=== PATIENT | male | born 1970 | race Caucasian/White ===

== ENCOUNTER 2019-10-30 04:53 | Inpatient (IN) ==
--- NOTE | 2019-10-28 10:00 | XRay Report ---
CLINICAL INFORMATION:Preoperative evaluation TECHNIQUE: PA and lateral upright chest x-ray COMPARISON: Previous chest x-ray dated 01/09/2006 FINDINGS:No focal pulmonary parenchymal infiltrate or mass. Heart size and vascularity are normal. Lindsay and mediastinum are negative. There is no pleural fluid IMPRESSION: No acute abnormality Interpreted and Authenticated by: Otilio Beyer 10/28/19
[2019-10-28 13:12] LABS: Basophils # (Auto) 0.09 K/mcL (0.00-0.30); Basophils % (Auto) 0.9 % (0.0-2.0); Eosinophils # (Auto) 0.41 K/mcL (0.00-0.70); Eosinophils % (Auto) 4.1 % (0.0-7.0); Granulocytes % (Auto) 52.8 % (38.0-78.0); Hematocrit 49.5 % (40.1-51.0); Hemoglobin 17.3 g/dL (13.7-17.5); Lymphocytes # (Auto) 3.49 K/mcL (1.50-4.80); Lymphocytes % (Auto) 34.8 % (15.5-49.0); Mean Cell Volume 89.4 fL (80.0-100.0); Mean Corpuscular HGB Conc 34.9 g/dL (31.0-36.0); Mean Platelet Volume 9.8 fL (7.4-10.4); Monocytes # (Auto) 0.74 K/mcL (0.10-0.90); Monocytes % (Auto) 7.4 % (1.0-12.0); Platelet Count 368 K/mcL (140-440); RBC 5.54 M/mcL (4.63-6.08); Red Cell Distribution Width 12.6 % (11.5-14.5)
[2019-10-28 13:24] LABS: ALT/SGPT 30 U/l (0-40); AST/SGOT 22 U/l (0-37); Albumin 4.7 gm/dL (3.2-5.2); Albumin/Globulin Ratio 1.6 (1.0-2.3); Alkaline Phosphatase 64 U/L (39-117); Bilirubin,Total 0.3 mg/dL (0.0-1.0); Blood Urea Nitrogen 12 mg/dl (6-20); Carbon Dioxide 24 mmol/L (22-30); Chloride 101 mmol/L (96-108); Glomerular Filtration Rate 87; Glucose 86 mg/dL (70-105)
[2019-10-30] MEDS ORDERED: 0.9 % SODIUM CHLORIDE 250 ML IV SCH (05:00)
[2019-10-30] MEDS ORDERED: IPRATROPIUM/ALBUTEROL 3 ML AMPUL.NEB NEB PRN ×3 (05:00→12:12)
[2019-10-30] MEDS ORDERED: SCOPOLAMINE 1 PATCH PATCH TOPICAL PRN (05:00)
[2019-10-30] MEDS ORDERED: metroNIDAZOLE 500 MG/100 ML BAG IV SCH (06:00)
[2019-10-30] MEDS ORDERED: LEVOFLOXACIN 750 MG/150 ML BAG IV SCH (06:00)
[2019-10-30] MEDS ORDERED: IPRATROPIUM/ALBUTEROL 3 ML AMPUL.NEB NEB ONE (08:04)
[2019-10-30] MEDS ORDERED: ACETAMINOPHEN 1,000 MG/100 ML BOTTLE IV ONE (08:19)
[2019-10-30] MEDS ORDERED: PROPOFOL 200 MG/20 ML VIAL IV ONE (09:17)
[2019-10-30] MEDS ORDERED: FAMOTIDINE/PF 20 MG/2 ML VIAL IV ONE (09:17)
[2019-10-30] MEDS ORDERED: KETAMINE 100 MG/ML ML IV ONE ×2 (09:17)
[2019-10-30] MEDS ORDERED: MAGNESIUM SULFATE 2 GM/50 ML BAG IV ONE ×2 (09:17→09:30)
[2019-10-30] MEDS ORDERED: SUGAMMADEX SODIUM 200 MG/2 ML VIAL IV ONE (09:17)
[2019-10-30] MEDS ORDERED: DEXAMETHASONE 10 MG/ML VIAL IV ONE (09:17)
[2019-10-30] MEDS ORDERED: FUROSEMIDE 20 MG/2 ML VIAL IV ONE (09:17)
[2019-10-30] MEDS ORDERED: ONDANSETRON 4 MG/2 ML VIAL IV ONE (09:17)
[2019-10-30] MEDS ORDERED: ROCURONIUM 10 MG/ML ML IV ONE (09:17)
[2019-10-30] MEDS ORDERED: PHENYLEPHRINE 10 MG/ML VIAL IV ONE (09:17)
[2019-10-30] MEDS ORDERED: fentaNYL 250 MCG/5 ML VIAL IV ONE (09:17)
[2019-10-30] MEDS ORDERED: SUCCINYLCHOLINE 20 MG/ML ML IV ONE (09:17)
[2019-10-30] MEDS ORDERED: diphenhydrAMINE 50 MG/ML VIAL IV ONE (09:17)
[2019-10-30] MEDS ORDERED: LIDOCAINE HCL/PF 100 MG/5 ML SYRINGE IV ONE (09:17)
[2019-10-30] MEDS ORDERED: ROPIVACAINE HCL/PF 30 ML VIAL IJ ONE (09:17)
[2019-10-30] MEDS ORDERED: methylPREDNISolone ACETATE 80 MG/ML VIAL INTRAARTIC ONE (09:17)
[2019-10-30] MEDS ORDERED: ALBUMIN HUMAN 25 GM/100 ML BAG IV ONE (10:19)
[2019-10-30] MEDS ORDERED: LABETALOL 5 MG/ML ML IV PRN (11:33)
[2019-10-30] MEDS ORDERED: FLUMAZENIL 0.1 MG/ML ML IV PRN (11:33)
[2019-10-30] MEDS ORDERED: LACTATED RINGERS 250 ML IV PRN (11:33)
[2019-10-30] MEDS ORDERED: PROMETHAZINE 25 MG/ML VIAL IV PRN (11:33)
[2019-10-30] MEDS ORDERED: METOPROLOL TARTRATE 5 MG/5 ML VIAL IV PRN (11:33)
[2019-10-30] MEDS ORDERED: NALOXONE HCL 0.4 MG/ML VIAL IV PRN ×2 (11:33→12:12)
[2019-10-30] MEDS ORDERED: KETOROLAC 30 MG/ML VIAL IV PRN (11:33)
[2019-10-30] MEDS ORDERED: METHOCARBAMOL 1,000 MG/10 ML VIAL IV PRN ×2 (11:33→12:12)
--- NOTE | 2019-10-30 11:36 | Brief Operative Note ---
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
[2019-10-30] MEDS ORDERED: LACTATED RINGERS 1,000 ML IV SCH ×2 (11:45→12:15)
[2019-10-30] MEDS ORDERED: HYDROmorphone 2 MG/ML VIAL IV PRN ×2 (11:46→12:12)
[2019-10-30] MEDS ORDERED: diphenhydrAMINE 50 MG/ML VIAL IV PRN (12:12)
[2019-10-30] MEDS ORDERED: PROMETHAZINE 25 MG/ML VIAL IM PRN (12:12)
[2019-10-30] MEDS ORDERED: ATROPINE SULFATE 0.4 MG/ML VIAL IV PRN (12:12)
[2019-10-30] MEDS ORDERED: ONDANSETRON 4 MG/2 ML VIAL IV PRN (12:12)
[2019-10-30] MEDS ORDERED: fentaNYL 100 MCG/2 ML VIAL IV PRN (12:12)
[2019-10-30] MEDS ORDERED: ePHEDrine 50 MG/ML AMPUL IV PRN (12:12)
[2019-10-30] MEDS: fentaNYL 100 MCG/2 ML VIAL IV PRN ×3 (12:15→12:41)
[2019-10-30] MEDS: 0.9 % SODIUM CHLORIDE 1,000 ML IV SCH ×2 (13:15→21:05)
[2019-10-30] MEDS: HYDROmorphone 2 MG/ML VIAL IV PRN ×4 (13:27→22:09)
[2019-10-30] MEDS: METOCLOPRAMIDE 10 MG/2 ML VIAL IV SCH ×2 (13:27→17:29)
[2019-10-30] MEDS: 0.9 % SODIUM CHLORIDE 10 ML SYRINGE IV SCH ×2 (13:28→20:11)
[2019-10-30] MEDS: ACETAMINOPHEN 1,000 MG/100 ML BOTTLE IV SCH ×2 (14:30→21:04)
[2019-10-30] MEDS: ONDANSETRON 4 MG/2 ML VIAL IV PRN (14:30)
[2019-10-30] MEDS ORDERED: QUEtiapine 25 MG TABLET PO SCH (17:00)
[2019-10-30] MEDS: PROMETHAZINE 25 MG/ML VIAL IV PRN (17:29)
[2019-10-30] MEDS ORDERED: TEMAZEPAM 15 MG CAPSULE PO SCH (21:00)
[2019-10-30] MEDS: LORazepam 2 MG/ML VIAL IV PRN (21:05)
[2019-10-31] MEDS: HYDROmorphone 2 MG/ML VIAL IV PRN ×10 (00:37→21:41)
[2019-10-31] MEDS: METOCLOPRAMIDE 10 MG/2 ML VIAL IV SCH ×5 (00:47→23:32)
[2019-10-31] MEDS: ACETAMINOPHEN 1,000 MG/100 ML BOTTLE IV SCH ×3 (00:48→12:30)
[2019-10-31] MEDS: 0.9 % SODIUM CHLORIDE 1,000 ML IV SCH ×4 (03:38→19:28)
[2019-10-31] MEDS: methylPREDNISolone SOD SUCC 125 MG/2 ML VIAL IV SCH ×2 (04:38→15:24)
[2019-10-31] MEDS: 0.9 % SODIUM CHLORIDE 10 ML SYRINGE IV SCH ×4 (05:42→21:42)
[2019-10-31] MEDS: PROMETHAZINE 25 MG/ML VIAL IV PRN (08:24)
[2019-10-31] MEDS ORDERED: LURASIDONE HCL 20 MG PO SCH (09:00)
[2019-10-31] MEDS ORDERED: lamoTRIgine 100 MG TABLET PO SCH (09:00)
[2019-10-31] MEDS ORDERED: LURASIDONE HCL 80 MG PO SCH (09:00)
[2019-10-31] MEDS: LEVOFLOXACIN 500 MG/100 ML BAG IV SCH (09:05)
[2019-10-31] MEDS: ONDANSETRON 4 MG/2 ML VIAL IV PRN (12:31)
--- NOTE | 2019-10-31 12:50 | General Surgery Progress Note ---
Subjective Patient reports: feels better, still having pain, pain is less, no flatus, no bowel movement, afebrile Narrative: Note initiated : 10/31/19 at 12:47 pm Service Date, if different from initiated Date: [] Patient: Yevgeniy Fernandez 49 y/o M admitted on 10/30/19 for Right Colectomy. Chief Complaint: [Patient is stable. He is complaining of headache. His abdominal pain is controlled. He denies nausea.] Objective Temp Pulse Resp BP Pulse Ox 99.6 F H 97 H 17 146/95 93 10/31/19 08:00 10/31/19 08:00 10/31/19 08:00 10/31/19 08:00 10/31/19 08:00 - Additional Data Intake & Output - Last 24 hours: Intake & Output 10/29/19 10/30/19 10/31/19 11/01/19 05:59 05:59 05:59 05:59 Intake Total 4593 1200 Output Total 4850 2000 Balance -257 -800 Weight 183 lb 174 lb 1.6 oz 174 lb 14.4 oz 174 lb 14.4 oz - General physical appearance well developed, well nourished, no distress - Eyes PERRL, normal ocular movement - ENT normal pinna, normal nares, normal mucosa, no hearing loss, no congestion - Neck no masses, no bruits, trachea midline, no lymphadenopathy, no venous distension - Respiratory normal expansion, normal respiratory effort, clear to auscultation - Cardiovascular Cardiovascular exam: Present: normal rate and rhythm, RRR, +S1, +S2. 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 Change of dressing to abdominal incision Current Visit: No - Time Spent With Patient Total time spent is greater than 50% in coordination of care (as documented) at patient's floor/unit and/or counseling patient:
[2019-10-31] MEDS: KETOROLAC 30 MG/ML VIAL IV PRN ×2 (13:13→19:28)
[2019-10-31 13:56] LABS: Basophils # (Auto) 0.02 K/mcL (0.00-0.30); Basophils % (Auto) 0.1 % (0.0-2.0); Eosinophils # (Auto) 0.32 K/mcL (0.00-0.70); Granulocytes % (Auto) 83.7 % (38.0-78.0); Hematocrit 39.9 % (40.1-51.0); Hemoglobin 13.9 g/dL (13.7-17.5); Lymphocytes # (Auto) 0.95 K/mcL (1.50-4.80); Lymphocytes % (Auto) 6.1 % (15.5-49.0); Mean Cell Volume 89.3 fL (80.0-100.0); Mean Corpuscular HGB Conc 34.8 g/dL (31.0-36.0); Mean Platelet Volume 9.7 fL (7.4-10.4); Monocytes # (Auto) 1.27 K/mcL (0.10-0.90); Monocytes % (Auto) 8.1 % (1.0-12.0); Platelet Count 351 K/mcL (140-440); RBC 4.47 M/mcL (4.63-6.08); Red Cell Distribution Width 12.6 % (11.5-14.5); WBC 15.7 K/mcL (4.50-11.00)
[2019-10-31] MEDS: LORazepam 2 MG/ML VIAL IV PRN ×2 (17:14→23:42)
[2019-11-01] MEDS: HYDROmorphone 2 MG/ML VIAL IV PRN ×11 (01:02→23:36)
[2019-11-01] MEDS: 0.9 % SODIUM CHLORIDE 1,000 ML IV SCH ×6 (02:21→17:27)
[2019-11-01] MEDS: LORazepam 2 MG/ML VIAL IV PRN ×2 (05:47→21:37)
[2019-11-01] MEDS: 0.9 % SODIUM CHLORIDE 10 ML SYRINGE IV SCH ×3 (06:01→21:38)
[2019-11-01] MEDS: METOCLOPRAMIDE 10 MG/2 ML VIAL IV SCH ×3 (06:01→17:27)
[2019-11-01 07:06] LABS: ALT/SGPT 19 U/l (0-40); AST/SGOT 19 U/l (0-37); Albumin 4.3 gm/dL (3.2-5.2); Albumin/Globulin Ratio 1.2 (1.0-2.3); Alkaline Phosphatase 55 U/L (39-117); Bilirubin,Direct < 0.2 mg/dL (0.0-0.3); Bilirubin,Total 0.6 mg/dL (0.0-1.0); Blood Urea Nitrogen 10 mg/dl (6-20); Calcium 9.9 mg/dl (8.6-10.4); Carbon Dioxide 23 mmol/L (22-30); Chloride 103 mmol/L (96-108); Globulin 3.6 gm/dL (2.2-3.7); Glomerular Filtration Rate 110; Glucose 114 mg/dL (70-105); Lactate Dehydrogenase 223 U/L (94-250); Triglycerides 95 mg/dl (<150); Uric Acid 4.2 mg/dL (2.5-8.0)
[2019-11-01 07:08] LABS: Phosphorous 1.9 mg/dL (2.7-4.5)
[2019-11-01 07:54] LABS: INR 1.2 (0.9-1.1); Prothrombin Time 15.6 sec (11.9-14.5)
[2019-11-01 08:11] LABS: Basophils # (Auto) 0.03 K/mcL (0.00-0.30); Basophils % (Auto) 0.2 % (0.0-2.0); Eosinophils # (Auto) 0 K/mcL (0.00-0.70); Eosinophils % (Auto) 0 % (0.0-7.0); Granulocytes % (Auto) 77.1 % (38.0-78.0); Hematocrit 39.1 % (40.1-51.0); Hemoglobin 13.7 g/dL (13.7-17.5); Lymphocytes # (Auto) 2.32 K/mcL (1.50-4.80); Lymphocytes % (Auto) 11.9 % (15.5-49.0); Mean Cell Volume 89.9 fL (80.0-100.0); Mean Platelet Volume 9.6 fL (7.4-10.4); Monocytes # (Auto) 2.11 K/mcL (0.10-0.90); Monocytes % (Auto) 10.8 % (1.0-12.0); Platelet Count 355 K/mcL (140-440); RBC 4.35 M/mcL (4.63-6.08); Red Cell Distribution Width 12.8 % (11.5-14.5); WBC 19.6 K/mcL (4.50-11.00)
[2019-11-01] MEDS: LEVOFLOXACIN 500 MG/100 ML BAG IV SCH (09:37)
[2019-11-01] MEDS: KETOROLAC 30 MG/ML VIAL IV PRN (09:37)
[2019-11-01] MEDS ORDERED: POTASSIUM PHOSPHATE 40 MEQ in DEXTROSE 5% IN WATER 500 ML IV ONE (13:52)
--- NOTE | 2019-11-01 13:52 | General Surgery Progress Note ---
Subjective Patient reports: feels better, pain is less, afebrile Narrative: Note initiated : 11/01/19 at 1:50 pm Service Date, if different from initiated Date: [] Patient: Yevgeniy Fernandez 49 y/o M admitted on 10/30/19 for Right Colectomy. Chief Complaint: [patient states that he feels well. He states his pain is cont rolled. His headache has resolved. He is afebrile. There is still some oozing of them bled from his incision and the dressing was changed. He has not had flatus, L4. White blood count 19.6, hemoglobin 13.7, hematocrit 39.1, phosphorus 1.9, potassium 3.5, PT 15.6, INR 1.2.] Objective Temp Pulse Resp BP Pulse Ox 98.5 F 109 H 18 162/96 92 11/01/19 07:34 11/01/19 07:34 11/01/19 07:34 11/01/19 07:34 11/01/19 07:34 - Additional Data Intake & Output - Last 24 hours: Intake & Output 10/30/19 10/31/19 11/01/19 11/02/19 05:59 05:59 05:59 05:59 Intake Total 4593 3860 1340 Output Total 4850 6700 1200 Balance -257 -2840 140 Weight 174 lb 1.6 oz 174 lb 14.4 oz 174 lb 8 oz - General physical appearance well developed, well nourished, no distress - Eyes PERRL, normal ocular movement - ENT normal pinna, normal nares, normal mucosa, no hearing loss, no congestion - Neck no masses, no bruits, trachea midline, no lymphadenopathy, no venous distension - Respiratory normal expansion, normal respiratory effort, clear to percussion, clear to auscultation - Cardiovascular Cardiovascular exam: Present: normal rate and rhythm, RRR, +S1, +S2. Absent: JVD, tachycardia - Abdomen distended (mild distention; active bowel sounds; bloody drainage from incision) - Integumentary no rash, no growths, no abnormal pigmentation - Neurologic normal coordination, normal sensation - Musculoskeletal normal gait, normal posture - Psychiatric oriented to time, oriented to person, oriented to place, speech is normal, memory intact - Labs 11/01/19 05:46 11/01/19 05:46 Diabetes panel 02/16/20 Range/Units 05:46 Sodium 138 (133-145) mmol/L Potassium 3.5 (3.3-5.1) mmol/L Chloride 103 (96-108) mmol/L Carbon Dioxide 23 (22-30) mmol/L BUN 10 (6-20) mg/dl Creatinine 0.7 (0.7-1.2) mg/dl Glucose 114 H (70-105) mg/dL Calcium 9.9 (8.6-10.4) mg/dl AST 19 (0-37) U/l ALT 19 (0-40) U/l Alkaline Phosphatase 55 (39-117) U/L Total Protein 7.9 (5.9-8.4) gm/dL Albumin 4.3 (3.2-5.2) gm/dL Triglycerides 95 (<150) mg/dl Calcium panel 11/01/19 Range/Units 05:46 Calcium 9.9 (8.6-10.4) mg/dl Phosphorus 1.9 L (2.7-4.5) mg/dL Albumin 4.3 (3.2-5.2) gm/dL Pituitary panel 11/01/19 Range/Units 05:46 Sodium 138 (133-145) mmol/L Potassium 3.5 (3.3-5.1) mmol/L Chloride 103 (96-108) mmol/L Carbon Dioxide 23 (22-30) mmol/L BUN 10 (6-20) mg/dl Creatinine 0.7 (0.7-1.2) mg/dl Glucose 114 H (70-105) mg/dL Calcium 9.9 (8.6-10.4) mg/dl Adrenal panel 11/01/19 Range/Units 05:46 Sodium 138 (133-145) mmol/L Potassium 3.5 (3.3-5.1) mmol/L Chloride 103 (96-108) mmol/L Carbon Dioxide 23 (22-30) mmol/L BUN 10 (6-20) mg/dl Creatinine 0.7 (0.7-1.2) mg/dl Glucose 114 H (70-105) mg/dL Calcium 9.9 (8.6-10.4) mg/dl Total Bilirubin 0.6 (0.0-1.0) mg/dL AST 19 (0-37) U/l ALT 19 (0-40) U/l Alkaline Phosphatase 55 (39-117) U/L Total Protein 7.9 (5.9-8.4) gm/dL Albumin 4.3 (3.2-5.2) gm/dL Assessment and Plan (1) Carcinoid tumor of ileum Status: Resolved Current Visit: Yes (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 Change of dressing to abdominal incision Current Visit: No - Time Spent With Patient Total time spent is greater than 50% in coordination of care (as documented) at patient's floor/unit and/or counseling patient:
[2019-11-01] MEDS: hydrALAZINE 20 MG/ML VIAL IV PRN ×2 (17:27→23:41)
[2019-11-01] MEDS ORDERED: FUROSEMIDE 40 MG/4 ML VIAL IV ONE ×2 (19:35→21:03)
[2019-11-01] MEDS ORDERED: 0.9 % SODIUM CHLORIDE 1,000 ML IV SCH (19:45)
[2019-11-01] MEDS ORDERED: IPRATROPIUM/ALBUTEROL 3 ML AMPUL.NEB NEB ONE ×2 (19:46→23:10)
[2019-11-01] MEDS: IPRATROPIUM/ALBUTEROL 3 ML AMPUL.NEB NEB SCH ×2 (19:48→23:12)
[2019-11-02] MEDS: METOCLOPRAMIDE 10 MG/2 ML VIAL IV SCH ×5 (00:09→23:45)
[2019-11-02] MEDS: HYDROmorphone 2 MG/ML VIAL IV PRN ×9 (02:01→23:45)
[2019-11-02] MEDS ORDERED: IPRATROPIUM/ALBUTEROL 3 ML AMPUL.NEB NEB ONE (02:06)
[2019-11-02] MEDS: KETOROLAC 30 MG/ML VIAL IV PRN (02:09)
[2019-11-02] MEDS: IPRATROPIUM/ALBUTEROL 3 ML AMPUL.NEB NEB SCH (02:09)
[2019-11-02] MEDS: 0.9 % SODIUM CHLORIDE 10 ML SYRINGE IV SCH ×3 (05:20→23:51)
--- NOTE | 2019-11-02 05:44 | XRay Report ---
CLINICAL INFORMATION:Previous surgery. Abnormal physical examination TECHNIQUE: AP portable upright chest x-ray COMPARISON: Previous chest x-rays dated 10/28/2019, 01/09/2006 FINDINGS:There is an esophagogastric tube with its tip in the gastric fundus. Bibasilar pulmonary parenchymal densities. Findings are most consistent with atelectasis. Follow-up radiographs are recommended. Mid and upper lungs are negative Heart size and vascularity are normal. Lindsay and mediastinum are negative. IMPRESSION: Mild bibasilar pulmonary parenchymal density. Appearance is most consistent with atelectasis Interpreted and Authenticated by: Otilio Beyer 11/02/19
[2019-11-02 06:33] LABS: Basophils # (Auto) 0.08 K/mcL (0.00-0.30); Basophils % (Auto) 0.5 % (0.0-2.0); Eosinophils # (Auto) 0.03 K/mcL (0.00-0.70); Eosinophils % (Auto) 0.2 % (0.0-7.0); Granulocytes % (Auto) 75.3 % (38.0-78.0); Hematocrit 40.5 % (40.1-51.0); Hemoglobin 14.4 g/dL (13.7-17.5); Lymphocytes % (Auto) 13.7 % (15.5-49.0); Mean Cell Volume 89.2 fL (80.0-100.0); Mean Corpuscular HGB Conc 35.6 g/dL (31.0-36.0); Mean Platelet Volume 9.7 fL (7.4-10.4); Monocytes # (Auto) 1.58 K/mcL (0.10-0.90); Monocytes % (Auto) 10.3 % (1.0-12.0); Platelet Count 434 K/mcL (140-440); RBC 4.54 M/mcL (4.63-6.08); Red Cell Distribution Width 12.8 % (11.5-14.5); WBC 15.3 K/mcL (4.50-11.00)
[2019-11-02 06:40] LABS: INR 1.3 (0.9-1.1); Prothrombin Time 16.2 sec (11.9-14.5)
[2019-11-02 07:03] LABS: proBNP 183.8 pg/ml (0-125)
[2019-11-02 07:21] LABS: ALT/SGPT 17 U/l (0-40); AST/SGOT 18 U/l (0-37); Albumin 4.4 gm/dL (3.2-5.2); Albumin/Globulin Ratio 1.1 (1.0-2.3); Alkaline Phosphatase 57 U/L (39-117); Bilirubin,Direct 0.2 mg/dL (0.0-0.3); Blood Urea Nitrogen 18 mg/dl (6-20); Carbon Dioxide 23 mmol/L (22-30); Chloride 99 mmol/L (96-108); Globulin 4.1 gm/dL (2.2-3.7); Glomerular Filtration Rate 104; Glucose 116 mg/dL (70-105); Lactate Dehydrogenase 231 U/L (94-250); Triglycerides 160 mg/dl (<150); Uric Acid 5.9 mg/dL (2.5-8.0)
[2019-11-02 07:24] LABS: Phosphorous 3.6 mg/dL (2.7-4.5)
[2019-11-02] MEDS: LEVOFLOXACIN 500 MG/100 ML BAG IV SCH (08:52)
[2019-11-02] MEDS: LORazepam 2 MG/ML VIAL IV PRN (09:18)
[2019-11-02] MEDS ORDERED: POTASSIUM CHLORIDE 40 MEQ in DEXTROSE 5% IN WATER 500 ML IV ONE (10:00)
[2019-11-02] MEDS: lamoTRIgine 100 MG TABLET PO SCH (10:12)
[2019-11-02] MEDS: LURASIDONE PO SCH (10:13)
[2019-11-02] MEDS: METOPROLOL TARTRATE 5 MG/5 ML VIAL IV PRN ×2 (11:00→22:24)
--- NOTE | 2019-11-02 18:21 | General Surgery Progress Note ---
Subjective Patient reports: feels better, pain is less, no flatus, no bowel movement, afebrile Narrative: Note initiated : 11/02/19 at 6:20 pm Service Date, if different from initiated Date: [] Patient: Yevgeniy Fernandez 49 y/o M admitted on 10/30/19 for Right Colectomy. Chief Complaint: [patient continues to feel better. He has been afebrile. He denies chest pain or shortness of breath. He has not had flatus so far. He denies nausea. There is an increase in NG output, but he also took in 4 cups of ice chips today, which may account for the increased volume. Abdominal x-ray was done and it shows small amount of gas in the small bowel with a large amount of gas in the colon..] Objective Temp Pulse Resp BP Pulse Ox 97.2 F 108 H 18 139/91 93 11/02/19 16:00 11/02/19 16:00 11/02/19 16:00 11/02/19 16:00 11/02/19 16:00 - Additional Data Intake & Output - Last 24 hours: Intake & Output 10/31/19 11/01/19 11/02/19 11/03/19 05:59 05:59 05:59 05:59 Intake Total 4593 3860 3386.0909 100 Output Total 4850 6700 5550 2615 Balance -257 -2840 -2163.9091 -2515 Weight 174 lb 14.4 oz 174 lb 8 oz 171 lb 6.4 oz - General physical appearance well developed, well nourished, no distress - Eyes PERRL, normal ocular movement - ENT normal pinna, normal nares, normal mucosa, no hearing loss, no congestion - Neck no masses, no bruits, trachea midline, no lymphadenopathy, no venous distension - Respiratory normal expansion, normal respiratory effort, clear to auscultation, other (no rales, rhonchi or wheezes) - Cardiovascular Cardiovascular exam: Present: normal rate and rhythm, +S1, +S2, tachycardia. Absent: JVD - Abdomen tender (. Mild incisional tenderness), bowel sounds (. Good active bowel sounds), surgical scars (none), masses (none) - Integumentary no rash, no growths, no abnormal pigmentation - Neurologic normal coordination, normal sensation - Musculoskeletal normal gait, normal posture - Psychiatric oriented to time, oriented to person, oriented to place, speech is normal, memory intact - Labs 11/02/19 05:27 11/02/19 05:27 Diabetes panel 11/02/19 Range/Units 05:27 Sodium 140 (133-145) mmol/L Potassium 3.1 L (3.3-5.1) mmol/L Chloride 99 (96-108) mmol/L Carbon Dioxide 23 (22-30) mmol/L BUN 18 (6-20) mg/dl Creatinine 0.8 (0.7-1.2) mg/dl Glucose 116 H (70-105) mg/dL Calcium 10.0 (8.6-10.4) mg/dl AST 18 (0-37) U/l ALT 17 (0-40) U/l Alkaline Phosphatase 57 (39-117) U/L Total Protein 8.5 H (5.9-8.4) gm/dL Albumin 4.4 (3.2-5.2) gm/dL Triglycerides 160 H (<150) mg/dl Calcium panel 11/02/19 Range/Units 05:27 Calcium 10.0 (8.6-10.4) mg/dl Phosphorus 3.6 (2.7-4.5) mg/dL Albumin 4.4 (3.2-5.2) gm/dL Pituitary panel 11/02/19 Range/Units 05:27 Sodium 140 (133-145) mmol/L Potassium 3.1 L (3.3-5.1) mmol/L Chloride 99 (96-108) mmol/L Carbon Dioxide 23 (22-30) mmol/L BUN 18 (6-20) mg/dl Creatinine 0.8 (0.7-1.2) mg/dl Glucose 116 H (70-105) mg/dL Calcium 10.0 (8.6-10.4) mg/dl Adrenal panel 11/02/19 Range/Units 05:27 Sodium 140 (133-145) mmol/L Potassium 3.1 L (3.3-5.1) mmol/L Chloride 99 (96-108) mmol/L Carbon Dioxide 23 (22-30) mmol/L BUN 18 (6-20) mg/dl Creatinine 0.8 (0.7-1.2) mg/dl Glucose 116 H (70-105) mg/dL Calcium 10.0 (8.6-10.4) mg/dl Total Bilirubin 1.0 (0.0-1.0) mg/dL AST 18 (0-37) U/l ALT 17 (0-40) U/l Alkaline Phosphatase 57 (39-117) U/L Total Protein 8.5 H (5.9-8.4) gm/dL Albumin 4.4 (3.2-5.2) gm/dL Assessment and Plan (1) Carcinoid tumor of ileum Status: Resolved Assessment and plan: Continue present therapy. Add pantoprazole for heartburn. Replace potassium. 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 Change of dressing to abdominal incision Current Visit: No - Time Spent With Patient Total time spent is greater than 50% in coordination of care (as documented) at patient's floor/unit and/or counseling patient:
--- NOTE | 2019-11-02 18:23 | XRay Report ---
CLINICAL INFORMATION: Postoperative ileus TECHNIQUE: Supine and upright abdomen COMPARISON: CT scan dated 10/21/2019 FINDINGS: There are skin dulce maria in a vertical midline incision. There is an esophagogastric tube in the proximal stomach There is gas within the colon. No dilated gas-filled small bowel. There is some small bowel gas in left upper quadrant. Bowel gas pattern is nonspecific. No evidence for obstruction. There is no pneumoperitoneum. No biliary or portal venous gas. IMPRESSION: Nonspecific and nonobstructive bowel gas pattern Interpreted and Authenticated by: Otilio Beyer 11/02/19
[2019-11-02] MEDS: QUEtiapine 25 MG TABLET PO SCH (20:16)
[2019-11-02] MEDS: 0.9 % SODIUM CHLORIDE 1,000 ML IV SCH (20:30)
[2019-11-02] MEDS ORDERED: TEMAZEPAM 15 MG CAPSULE PO PRN (21:00)
[2019-11-03] MEDS: HYDROmorphone 2 MG/ML VIAL IV PRN ×7 (02:43→20:43)
[2019-11-03] MEDS: METOCLOPRAMIDE 10 MG/2 ML VIAL IV SCH ×4 (05:58→23:51)
[2019-11-03] MEDS: 0.9 % SODIUM CHLORIDE 10 ML SYRINGE IV SCH ×3 (05:59→20:43)
[2019-11-03] MEDS: lamoTRIgine 100 MG TABLET PO SCH (08:34)
[2019-11-03] MEDS: LEVOFLOXACIN 500 MG/100 ML BAG IV SCH (08:37)
[2019-11-03] MEDS: LURASIDONE PO SCH (08:52)
[2019-11-03] MEDS: 0.9 % SODIUM CHLORIDE 1,000 ML IV SCH ×2 (08:52→13:35)
[2019-11-03 09:29] LABS: Basophils # (Auto) 0.13 K/mcL (0.00-0.30); Basophils % (Auto) 0.8 % (0.0-2.0); Eosinophils # (Auto) 0.33 K/mcL (0.00-0.70); Eosinophils % (Auto) 2.1 % (0.0-7.0); Granulocytes % (Auto) 71.4 % (38.0-78.0); Hematocrit 42.2 % (40.1-51.0); Hemoglobin 14.7 g/dL (13.7-17.5); Lymphocytes # (Auto) 2.67 K/mcL (1.50-4.80); Lymphocytes % (Auto) 16.6 % (15.5-49.0); Mean Cell Volume 90.6 fL (80.0-100.0); Mean Corpuscular HGB Conc 34.8 g/dL (31.0-36.0); Mean Platelet Volume 9.5 fL (7.4-10.4); Monocytes # (Auto) 1.46 K/mcL (0.10-0.90); Monocytes % (Auto) 9.1 % (1.0-12.0); Platelet Count 481 K/mcL (140-440); RBC 4.66 M/mcL (4.63-6.08); Red Cell Distribution Width 12.6 % (11.5-14.5); WBC 16.1 K/mcL (4.50-11.00)
[2019-11-03 09:37] LABS: INR 1.2 (0.9-1.1); Prothrombin Time 16.1 sec (11.9-14.5)
[2019-11-03 09:52] LABS: ALT/SGPT 16 U/l (0-40); AST/SGOT 17 U/l (0-37); Albumin 4.6 gm/dL (3.2-5.2); Albumin/Globulin Ratio 1.3 (1.0-2.3); Alkaline Phosphatase 62 U/L (39-117); Bilirubin,Direct 0.4 mg/dL (0.0-0.3); Bilirubin,Total 1.8 mg/dL (0.0-1.0); Blood Urea Nitrogen 22 mg/dl (6-20); Calcium 10.4 mg/dl (8.6-10.4); Carbon Dioxide 26 mmol/L (22-30); Chloride 98 mmol/L (96-108); Globulin 3.6 gm/dL (2.2-3.7); Glomerular Filtration Rate 104; Glucose 102 mg/dL (70-105); Lactate Dehydrogenase 298 U/L (94-250); Phosphorous 3.7 mg/dL (2.7-4.5); Triglycerides 182 mg/dl (<150); Uric Acid 7.1 mg/dL (2.5-8.0)
--- NOTE | 2019-11-03 10:42 | Surgical Pathology Report ---
HISTOLOGY SPECIMEN MICROSCOPIC DIAGNOSIS RIGHT COLON AND TERMINAL ILEUM, ILEOCOLIC RESECTION: -- TERMINAL ILEUM: - WELL DIFFERENTIATED NEUROENDOCRINE TUMOR (CARCINOID TUMOR) WITH THE FOLLOWING FEATURES: - TUMOR SIZE: 1.2 cm IN GREATEST DIMENSION. - TUMOR FOCALITY: UNIFOCAL. - MITOTIC RATE: LESS THAN 2 MITOSES/2 mm2. - Ki-67 LABELING INDEX: LESS THAN 3%. - TUMOR EXTENSION: TUMOR INVADES THROUGH THE MUSCULARIS PROPRIA INTO THE SUBSEROSAL TISSUE WITHOUTPENETRATION OF THE OVERLYING SEROSA. - LYMPH-VASCULAR INVASION: PRESENT. - PERINEURAL INVASION: PRESENT. - LARGE MESENTERIC MASSES (GREATER THAN 2 cm): NOT IDENTIFIED. - MARGINS: PROXIMAL, DISTAL AND RADIAL/MESENTERIC MARGINS ARE UNINVOLVED BY TUMOR; TUMOR IS 3 cm FROM THE NEAREST (MESENTERIC) MARGIN. - PATHOLOGIC STAGE: pT3 N1. - SEE SUMMARY CANCER DATA FOR DETAILS: -- RIGHT COLON: - NO DIAGNOSTIC ALTERATIONS. - NO MALIGNANCY IDENTIFIED. -- LYMPH NODES, MESENTERIC: - METASTATIC WELL DIFFERENTIATED NEUROENDOCRINE TUMOR IDENTIFIED WITHIN THREE OF FOURTEEN LYMPH NODES (3/14). - SIZE OF LARGEST METASTASIS: 0.3 cm IN GREATEST DIMENSION. - EXTRACAPSULAR EXTENSION: NOT IDENTIFIED. (DMT:sln) SUMMARY CANCER DATA Procedure: Ileocolic resection. Tumor Site: Ileum. Tumor Size: 1.2 cm in greatest dimension. Tumor Focality: Unifocal. Histologic Type and Grade: Well differentiated neuroendocrine tumor. Mitotic Rate: Less than 2 mitoses/ 2 mm2. Ki-67 Labeling Index: Less than 3%. Tumor Extension: Tumor invades through the muscularis propria into subserosal tissue without penetration of overlying serosa. Lymph-Vascular Invasion: Present. Perineural Invasion: Present. Large Mesenteric Masses (greater than 2 cm): Not identified. Margins: Proximal Margin: Uninvolved by tumor. Distal Margin: Uninvolved by tumor. Radial/Mesenteric Margin: Uninvolved by tumor. Distance of invasive carcinoma from closest (mesenteric) margin: 3 cm. Lymph nodes: Number of Lymph Nodes involved: 3. Number of Lymph Nodes examined: 14. Pathologic Stage: pT3 N1. MICROSCOPIC DESCRIPTION The following immunohistochemical study is performed on Block A1: Cell Population: Neoplastic cells. Ki-67: Less than 3%. Some of the tests reported here may not have been cleared or approved by the U.[place]. Food and Drug Administration (FDA). However, the FDA has determined that such clearance or approval is not necessary. Pursuant to the requirements of CLIA, this laboratory has established and verified the accuracy and precision of all tests, and additional information about these tests is available upon request. All technical controls are adequate. PROCEDURAL IMPRESSION Carcinoid tumor terminal ileum. GROSS DESCRIPTION Received in formalin labeled right colon segment terminal ileum, is a 12.5 cm long, up to 4 cm diameter portion of right colonand attached terminal ileum. The segment of terminal ileum is 5 cm long and up to 2.2 cm greatest diameter. The segment of right colon is 7.2 cm long and up to 4 cm greatest diameter. The appendix is grossly absent. The specimen is covered by yellow-rooney lobulated adipose tissue. Within the terminal ileum is a 1.2 x 1.1 x 0.4 cm yellow, firm mass. The remainder of the ileal and colonic mucosa is rooney-pink with the usual pattern of plications. The mass extends through the bowel wall and extends very close to the serosal surface. The subserosal aspect of the mass measures 0.7 x 0.7 x 0.3 cm. The mass is 5 cm from the terminal ileum margin, 6.7 cm from the right colon margin and 3 cm from the mesenteric margin. No other masses or lesions are identified. Insurance Verification Rep sections submitted: A1 - terminal ileum margin; A2 - right colon margin; A3 - nearest mesenteric margin; A4-A6 - ambulatory service representative sections of mass; A7 - grossly unremarkable terminal ileum; A8 - grossly unremarkable colon; A9 - seven candidate lymph nodes, one inked black and bisected; A10 - eight candidate lymph nodes. (EBD:adj) Electronically Signed by: Apollo Arzate M.D.
--- NOTE | 2019-11-03 12:44 | Operative Note ---
DATE OF OPERATION: 10/30/2019 PREOPERATIVE DIAGNOSIS: Carcinoid tumor of terminal ileum. POSTOPERATIVE DIAGNOSIS: Carcinoid tumor of the terminal ileum. PROCEDURE: Right colectomy. FINDINGS: A 2.5 cm nodule of the terminal ileum with extension to the wall. DESCRIPTION OF PROCEDURE: Under general anesthesia, the patient's abdomen was prepped and draped in a sterile field. A midline incision was made. The bowel was removed from the peritoneal cavity and inspection of the cecum, terminal ileum reveals a nodular mass proximal to the ileocecal valve and the terminal ileum. It appears to extend into the wall of the terminal ileum. There was another nodule on the mesenteric suggesting extraluminal extension. The rest of the mesentery appeared to be unremarkable. The full length of the bowel was inspected and no other lesions were noted. The aortic nodes were inspected and were not ___. Son hepatis and the liver proper was inspected and there did appear to be lesions or peritoneal lesions. The terminal ileum was divided using a contour stapler about 5 cm proximal to the mass. The cecum was mobilized up to ascending colon. It was then dissected with a window made in the mesocolon. The colon was divided using Contour stapler. The mesentery was then divided using LigaSure. A [id number] antimesenteric anastomosis was carried out using SHANDA 55 stapler. The residual opening was closed with a TA 60 stapler. The anastomotic suture line was oversewn using running 2-0 Prolene. The mesenteric defect was closed with running 2-0 Monocryl. Irrigation was carried out. The patient tolerated the procedure well. A sponge count and instrument count was done and a ____ was placed. Peritoneum was closed with running #1 Prolene. Subcutaneous tissue was closed with 2-0 Monocryl. Skin was closed with dulce maria. The patient tolerated the procedure well. He was awakened and transferred to a bed and taken to the postanesthetic care unit in stable, satisfactory condition. LCS:deysi Job ID: [id number] Doc ID: [id number] Winston Grissom M.D.
[2019-11-03] MEDS: LORazepam 2 MG/ML VIAL IV PRN ×2 (15:12→22:10)
[2019-11-03] MEDS: METOPROLOL TARTRATE 5 MG/5 ML VIAL IV PRN (15:35)
[2019-11-03] MEDS ORDERED: ACETAMINOPHEN 1,000 MG/100 ML BOTTLE IV PRN (16:26)
[2019-11-03] MEDS ORDERED: ACETAMINOPHEN 1,000 MG in PREMIX 1 BAG IV SCH (16:30)
[2019-11-03] MEDS ORDERED: 0.9 % SODIUM CHLORIDE 250 ML IV SCH (16:30)
[2019-11-03] MEDS: methylPREDNISolone SOD SUCC 125 MG/2 ML VIAL IV SCH (17:19)
--- NOTE | 2019-11-03 18:14 | General Surgery Progress Note ---
Subjective Patient reports: still having pain, pain is less, flatus, bowel movement, blood in stool, afebrile Narrative: Note initiated : 11/03/19 at 6:11 pm Service Date, if different from initiated Date: [] Patient: Yevgeniy Fernandez 49 y/o M admitted on 10/30/19 for Right Colectomy. Chief Complaint: [] Objective Temp Pulse Resp BP Pulse Ox 98.2 F 114 H 14 125/90 96 11/03/19 16:00 11/03/19 16:00 11/03/19 16:00 11/03/19 16:00 11/03/19 16:00 - Additional Data Intake & Output - Last 24 hours: Intake & Output 11/01/19 11/02/19 11/03/19 11/04/19 05:59 05:59 05:59 05:59 Intake Total 3860 3386.0909 2060 1780 Output Total 6700 5550 5415 1050 Balance -2840 -2163.9074 -8093 730 Weight 174 lb 8 oz 171 lb 6.4 oz 171 lb 14.4 oz 171 lb 14.4 oz - General physical appearance well developed, well nourished, no distress - Eyes PERRL, normal ocular movement - ENT normal pinna, normal nares, normal mucosa, no hearing loss, no congestion - Respiratory normal expansion, normal respiratory effort, clear to auscultation, other (no rales, rhonchi or wheezes) - Cardiovascular Cardiovascular exam: Present: normal rate and rhythm, +S1, +S2, tachycardia (. Patient has intermittent quality) - Abdomen non tender, bowel sounds (present), surgical scars (. Mild ecchymosis Incision which is not anticipated), masses (none) - Integumentary no rash, no growths, no abnormal pigmentation - Neurologic normal coordination, normal sensation - Musculoskeletal normal gait, normal posture - Psychiatric oriented to time, oriented to person, oriented to place, speech is normal, memory intact - Labs 11/03/19 06:21 11/03/19 06:21 Diabetes panel 11/03/19 Range/Units 06:21 Sodium 143 (133-145) mmol/L Potassium 3.5 (3.3-5.1) mmol/L Chloride 98 (96-108) mmol/L Carbon Dioxide 26 (22-30) mmol/L BUN 22 H (6-20) mg/dl Creatinine 0.8 (0.7-1.2) mg/dl Glucose 102 (70-105) mg/dL Calcium 10.4 (8.6-10.4) mg/dl AST 17 (0-37) U/l ALT 16 (0-40) U/l Alkaline Phosphatase 62 (39-117) U/L Total Protein 8.2 (5.9-8.4) gm/dL Albumin 4.6 (3.2-5.2) gm/dL Triglycerides 182 H (<150) mg/dl Calcium panel 11/03/19 Range/Units 06:21 Calcium 10.4 (8.6-10.4) mg/dl Phosphorus 3.7 (2.7-4.5) mg/dL Albumin 4.6 (3.2-5.2) gm/dL Pituitary panel 11/03/19 Range/Units 06:21 Sodium 143 (133-145) mmol/L Potassium 3.5 (3.3-5.1) mmol/L Chloride 98 (96-108) mmol/L Carbon Dioxide 26 (22-30) mmol/L BUN 22 H (6-20) mg/dl Creatinine 0.8 (0.7-1.2) mg/dl Glucose 102 (70-105) mg/dL Calcium 10.4 (8.6-10.4) mg/dl Adrenal panel 11/03/19 Range/Units 06:21 Sodium 143 (133-145) mmol/L Potassium 3.5 (3.3-5.1) mmol/L Chloride 98 (96-108) mmol/L Carbon Dioxide 26 (22-30) mmol/L BUN 22 H (6-20) mg/dl Creatinine 0.8 (0.7-1.2) mg/dl Glucose 102 (70-105) mg/dL Calcium 10.4 (8.6-10.4) mg/dl Total Bilirubin 1.8 H (0.0-1.0) mg/dL AST 17 (0-37) U/l ALT 16 (0-40) U/l Alkaline Phosphatase 62 (39-117) U/L Total Protein 8.2 (5.9-8.4) gm/dL Albumin 4.6 (3.2-5.2) gm/dL Assessment and Plan (1) Carcinoid tumor of ileum Status: Resolved Assessment and plan: Continue present therapy. 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 Change of dressing to abdominal incision Current Visit: No - Time Spent With Patient Total time spent is greater than 50% in coordination of care (as documented) at patient's floor/unit and/or counseling patient:
[2019-11-03] MEDS: QUEtiapine 25 MG TABLET PO SCH (22:10)
[2019-11-03] MEDS: amLODIPine 5 MG TABLET PO SCH (22:10)
[2019-11-04] MEDS: HYDROmorphone 2 MG/ML VIAL IV PRN ×6 (03:12→21:11)
[2019-11-04] MEDS: LORazepam 2 MG/ML VIAL IV PRN ×3 (03:13→15:39)
[2019-11-04] MEDS: methylPREDNISolone SOD SUCC 125 MG/2 ML VIAL IV SCH ×2 (03:24→08:11)
[2019-11-04] MEDS: METOCLOPRAMIDE 10 MG/2 ML VIAL IV SCH ×3 (06:07→17:37)
[2019-11-04] MEDS: 0.9 % SODIUM CHLORIDE 10 ML SYRINGE IV SCH ×4 (06:07→21:11)
[2019-11-04] MEDS: 0.9 % SODIUM CHLORIDE 1,000 ML IV SCH ×2 (08:08→10:07)
[2019-11-04] MEDS: LEVOFLOXACIN 500 MG/100 ML BAG IV SCH (08:08)
[2019-11-04] MEDS: lamoTRIgine 100 MG TABLET PO SCH (08:10)
[2019-11-04] MEDS: LURASIDONE HCL 80 MG PO SCH (08:12)
[2019-11-04] MEDS: LURASIDONE HCL 20 MG PO SCH (08:12)
--- NOTE | 2019-11-04 11:51 | General Surgery Progress Note ---
Subjective Patient reports: feels better, voiding w/o difficulty, bowel movement, blood in stool Narrative: Note initiated : 11/04/19 at 11:49 am Service Date, if different from initiated Date: [] Patient: Yevgeniy Fernandez 49 y/o M admitted on 10/30/19 for Right Colectomy. Chief Complaint: [] Doing well but still had bloody BM with clots this AM. Heart rate up some also Objective Temp Pulse Resp BP Pulse Ox 98.9 F 125 H 18 116/83 97 11/04/19 07:49 11/04/19 07:49 11/04/19 07:49 11/04/19 07:49 11/04/19 07:49 - Additional Data Intake & Output - Last 24 hours: Intake & Output 11/02/19 11/03/19 11/04/19 11/05/19 05:59 05:59 05:59 05:59 Intake Total 3386.0909 2060 3401 1700 Output Total 5550 5415 2450 225 Balance -2163.9091 -3355 951 1475 Weight 171 lb 6.4 oz 171 lb 14.4 oz 175 lb 3.2 oz - General physical appearance well developed, well nourished, no pain - Cardiovascular Cardiovascular exam: Present: tachycardia Additional comments: HR 120's but regular - Abdomen soft, non tender, bowel sounds - Labs 11/03/19 06:21 11/03/19 06:21 - Imaging Chest x-ray: other (CXR today OK by my read, no signs of fluid overload) Assessment and Plan (1) Carcinoid tumor of ileum Status: Resolved Current Visit: Yes (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
--- NOTE | 2019-11-04 12:03 | XRay Report ---
CLINICAL INFORMATION:Abnormal physical examination TECHNIQUE: PA and lateral upright chest x-ray COMPARISON: Chest x-rays dated 11/01/2019, 10/28/2019 FINDINGS:Lungs are negative. No parenchymal infiltrate or mass. No significant atelectasis. Heart size and vascularity are normal. Lindsay and mediastinum are negative. There is no pleural fluid. IMPRESSION: Negative PA and lateral chest x-ray Interpreted and Authenticated by: Otilio Beyer 11/04/19
[2019-11-04] MEDS: LACTATED RINGERS 1,000 ML IV SCH ×2 (12:10→19:02)
[2019-11-04 13:53] LABS: Hematocrit 27.7 % (40.1-51.0); Hemoglobin 9.8 g/dL (13.7-17.5); Mean Cell Volume 89.1 fL (80.0-100.0); Mean Corpuscular HGB Conc 35.4 g/dL (31.0-36.0); Mean Platelet Volume 10.2 fL (7.4-10.4); Platelet Count 405 K/mcL (140-440); RBC 3.11 M/mcL (4.63-6.08); Red Cell Distribution Width 12.2 % (11.5-14.5); WBC 14.7 K/mcL (4.50-11.00)
[2019-11-04] MEDS ORDERED: LACTATED RINGERS 1,000 ML IV ONE (14:47)
[2019-11-04] MEDS: amLODIPine 5 MG TABLET PO SCH (21:10)
[2019-11-04] MEDS: QUEtiapine 25 MG TABLET PO SCH (21:10)
[2019-11-05] MEDS: METOCLOPRAMIDE 10 MG/2 ML VIAL IV SCH ×5 (00:01→23:58)
[2019-11-05] MEDS: HYDROmorphone 2 MG/ML VIAL IV PRN ×6 (04:37→21:31)
[2019-11-05] MEDS: 0.9 % SODIUM CHLORIDE 10 ML SYRINGE IV SCH ×3 (04:38→23:50)
[2019-11-05] MEDS: 0.9 % SODIUM CHLORIDE 1,000 ML IV SCH ×2 (07:01→18:29)
[2019-11-05 08:46] LABS: Hematocrit 20.7 % (40.1-51.0); Hemoglobin 7.1 g/dL (13.7-17.5); Mean Cell Volume 90.8 fL (80.0-100.0); Mean Corpuscular HGB Conc 34.3 g/dL (31.0-36.0); Mean Platelet Volume 9.6 fL (7.4-10.4); Platelet Count 314 K/mcL (140-440); RBC 2.28 M/mcL (4.63-6.08); Red Cell Distribution Width 12.5 % (11.5-14.5); WBC 13.5 K/mcL (4.50-11.00)
[2019-11-05] MEDS: lamoTRIgine 100 MG TABLET PO SCH (08:51)
[2019-11-05] MEDS: LEVOFLOXACIN 500 MG/100 ML BAG IV SCH (08:51)
[2019-11-05] MEDS: LURASIDONE HCL 80 MG PO SCH (08:52)
[2019-11-05] MEDS: LURASIDONE HCL 20 MG PO SCH (08:52)
[2019-11-05] MEDS ORDERED: 0.9 % SODIUM CHLORIDE 250 ML IV SCH ×5 (09:30→17:00)
--- NOTE | 2019-11-05 10:36 | General Surgery Progress Note ---
Subjective Patient reports: no new complaints, feels better, bowel movement Narrative: Note initiated : 11/05/19 at 10:34 am Service Date, if different from initiated Date: [] Patient: Yevgeniy Fernandez 49 y/o M admitted on 10/30/19 for Right Colectomy. Chief Complaint: []post op BM + but bloody Pertinent ROS: not light headed ambulating with some assistance, Worried about continued bleeding Objective Temp Pulse Resp BP Pulse Ox 98.1 F 108 H 14 115/78 95 11/05/19 08:00 11/05/19 08:00 11/05/19 08:00 11/05/19 08:00 11/05/19 08:00 - Additional Data Intake & Output - Last 24 hours: Intake & Output 11/03/19 11/04/19 11/05/19 11/06/19 05:59 05:59 05:59 05:59 Intake Total 2060 3401 5573 Output Total 5415 2450 2075 Balance -3355 951 3498 Weight 171 lb 14.4 oz 175 lb 3.2 oz 176 lb 12.8 oz - General physical appearance no distress - Respiratory normal respiratory effort, clear to percussion, clear to auscultation - Cardiovascular Cardiovascular exam: Present: tachycardia - Abdomen soft, non tender - Labs 11/05/19 05:40 11/03/19 06:21 Assessment and Plan (1) Carcinoid tumor of ileum Status: Resolved Current Visit: Yes (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 Current Visit: No (3) Tachycardia Status: Acute Assessment and plan: Elevated HR probably on basis of low intravascular volume after GI bleed will Increase fluids IV and check CBC CXR OK Current Visit: Yes - Time Spent With Patient Total time spent is greater than 50% in coordination of care (as documented) at patient's floor/unit and/or counseling patient: 15 - 24 minutes
--- NOTE | 2019-11-05 11:05 | Internal Medicine Consult Note ---
Medical - CN: HPI - Data of Consult Consult date: 11/05/19 Requesting physician: Kapil Gonzalez Primary Care Provider: Otilio Mcdowell DO - Consult Narrative Reason for consult: Anemia History of present illness: Mr. Fernandez is a 49 year old M with a history of factor X deficiency diagnosed [address] Kristyn menard oncology at [place] after patient experienced sustained bleeding following a tooth extraction. He has not had any major bleeding episodes except 20 years ago when he had cranial surgery following traumatic basilar skull fracture with CSF rhinorrhea and subsequent brain bleeding leading to partial lobectomy. He denies intermittent epistaxis or GI bleeds. He was admitted for cecal carcinoid and underwent operative intervention on 10/[address] Grissom. Postoperatively patient has been gradually bleeding at the anastomosis site with his hemoglobin trending down from peak of 13.9 to as low as 7.1 today. He continues to pass chunks of blood every few hours. He has been receiving intermittently FFP/blood transfusion was ordered today. He endorses to minimal /weakness but denies diaphoresis, chest pain, shortness of breath. Orthostatics was positive with heart rate increasing from 105-130s. Subsequently hospitalist service was consulted for evaluation of factor X defici ency/bleeding. At the time of my evaluation patient is alert and oriented. He is slightly anxious. He is accompanied with his [id number]. He denies abdominal discomfort. Postoperative dressing in place. He appears pale. Currently infusing FFP as per surgery orders followed by 2 units of PRBC. Patient was able to endorse history as above, denies diaphoresis, chest palpitation or vision changes. He carries a history of substance abuse but last used cocaine 20 years ago and has not had hospitalization for CHF/cardiac arrhythmias. He is currently disabled following cranial surgery. Currently takes amlodipine for hypertension along with gabapentin and lamotrigine and quetiapine for PTSD. He denies hematuria/nausea vomiting, headache, photophobia or fever. Review of systems A 10 point review system was performed and is negative except for discussed preethi chacon CC: Winston Grissom MD Medical - CN: [facility] Surgical history: Right foot pain (Acute) Os naviculare and os trigonum seen on x-ray. I am not sure if this is contributing to his symptoms are not, because the symptoms are very nonspecific. Refer to podiatry. Impingement syndrome of right shoulder (Chronic) Prior rotator cuff repair. Resume the PT exercises. FROM Factor X deficiency (Chronic) Per Dr. Menard Essential hypertension (Chronic) Well-controlled at home Continue Norvasc 5 mg daily. Low-sodium diet recommended. Onychomycosis (Chronic) Traumatic brain injury (Chronic) 2009 Coronary artery disease (Chronic) Basilar skull fracture (Resolved) Closed Reactive airway disease (Chronic) Stable for quite some time PTSD (post-traumatic stress disorder) (Chronic) Patient is doing better in this regard, but continues to follow with psych. Continues with psychotherapy. Pneumonia (Resolved) Paresthesia (Chronic) 01/06/2014 of arms and legs Orbital floor (blow-out) closed fracture (Resolved) 02/2010 right side Optic neuritis (Chronic) Migraine (Chronic) Memory loss (Chronic) Low back pain (Chronic) Much improved after physical therapy Acute spontaneous intraparenchymal intracranial hemorrhage presumed to involve choroid plexus (Resolved) Right frontal lobe Insomnia (Chronic) Headache (Chronic) post severe concussion and right frontal brain injury Erectile dysfunction (Chronic) Dyslipidemia (Chronic) marked elevation of triglycerides Diplopia (Chronic) Depression (Chronic) Much improved, but continues to struggle with daily symptoms of depression. Managed with psychiatry and psychotherapy. Medications include Lamictal 200 mg daily, Latuda 100 mg daily, and temazepam 30 mg nightly for sleep. 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 History of repair of rotator cuff (Resolved) - Right side History of retained foreign body fully removed (Resolved) Left upper posterior calf after four stout accident History of testicular surgery (Resolved) Right testicle removed due to trauma Hx of appendectomy (Resolved) 1981- Status post epidural steroid injection (Resolved) 12/20/2008 lumbar Status post orchiopexy (Resolved) 1984-Right Family History Unknown Family history unknown Social History household members: spouse housing: house lives independently: Yes marital status: education level: high school occupational status: disabled well-balanced diet: daily or most days smoking status: Former smoker alcohol intake frequency: does not drink History of substance abuse 20 years ago cocaine Medical - CN: Meds Home Medications Medication Instructions Recorded Confirmed Type lamotrigine 25 mg tablet 200 mg PO DAILY tab 01/29/17 10/28/19 History temazepam 15 mg capsule 30 mg PO QHS 30 Days #60 cap 01/01/18 10/28/19 History gabapentin 400 mg capsule 400 mg PO TID #270 cap 08/03/19 10/28/19 Rx lurasidone 60 mg tablet 100 mg PO DAILY tab 08/10/19 10/28/19 History testosterone cypionate 200 mg/mL 200 mg IM Q2W #10 ml 10/02/19 10/28/19 Rx intramuscular oil peg 3350-electrolytes 236 240 ml PO Q10M #4000 ml 10/26/19 10/28/19 Rx gram-22.74 gram-6.74 gram-5.86 gram solution quetiapine 25 mg tablet 25 mg PO 1700 10/26/19 10/28/19 History Ergocalciferol (Vitamin D2) 50,000 unit PO FR@0900 10/28/19 10/28/19 History [Vitamin D2] Fenofibrate Nanocrystallized 48 mg PO HS 10/28/19 10/28/19 History [Tricor] amLODIPine BESYLATE [Norvasc] 5 mg PO HS 10/28/19 10/28/19 History Allergies Allergy/AdvReac Type Severity Reaction Status Date / Time No Known Drug Allergies Allergy Verified 10/28/19 09:18 Medical - CN: Exam - Constitutional Vitals: Temp Pulse Resp BP Pulse Ox 98.1 F 108 H 14 115/78 95 11/05/19 08:00 11/05/19 08:00 11/05/19 08:00 11/05/19 08:00 11/05/19 08:00 General appearance: no acute distress Exam: Alert but anxious Head post cranial surgery incision Eye movement symmetrical Oral cavity dry No ear nose discharge Neck no lymphadenopathy or JVD S1-S2 regular rhythm, faint systolic murmur Diminished breath sounds bases Abdomen postoperative dressing midline nontender Lower extremity no cyanosis clubbing no joint swelling Skin pallor noted Psych alert but anxious Neuro nonfocal Medical - CN: Result - Labs CBC & Chem 7: 11/05/19 05:40 11/03/19 06:21 Labs: Short CBC 11/04/19 11/05/19 Range/Units 12:15 05:40 WBC 14.7 H 13.5 H (4.50-11.00) K/mcL Hgb 9.8 L 7.1 L (13.7-17.5) g/dL Hct 27.7 L 20.7 L* (40.1-51.0) % Plt Count 405 314 (140-440) K/mcL Medical - CN: A/P (1) Blood loss, postoperative Status: Acute Assessment and plan: * Cecal carcinoid status post colectomy/anastomotic site bleed managed per surgery * Postoperative pain management on opioids per surgery Hospitalist consult * Acute blood loss anemia-continue FFP/PRBC transfusion/4 hourly hemoglobin checks. Discussed with blood bank factor X availability 4 to 10 days out precluding use of factor X concentrate. * Hemorrhagic shock with hypotension secondary to blood loss anemia-positive orthostatics with heart rate 105 supine resting rising over 130 standing. C ontinue PRBC transfusion/transferred to monitored unit/crystalloids and pressors if indicated. Close hemodynamic monitoring * History of neuropathy continue gabapentin * Essential hypertension continue amlodipine * History of traumatic brain injury with anxiety/PTSD continue lamotrigine/quetiapine * Full code * Prophylaxis SCD Plan * 4 hourly hemoglobin check * FFP as indicated * Transferred to monitored bed * PRBC transfusion if hemoglobin less than 7 * Possible transfer to tertiary center if persistent bleed versus repeat surgical intervention * Pre-existing medical condition management home meds Overall high complexity consult, will continue to follow along and provide periodic recommendations
[2019-11-05 12:38] LABS: INR 1.3 (0.9-1.1); Prothrombin Time 16.6 sec (11.9-14.5)
[2019-11-05] MEDS ORDERED: ACETAMINOPHEN 1,000 MG/100 ML BOTTLE IV PRN (13:36)
[2019-11-05] MEDS ORDERED: ONDANSETRON 4 MG/2 ML VIAL IV PRN (13:36)
[2019-11-05] MEDS ORDERED: METOPROLOL TARTRATE 5 MG/5 ML VIAL IV PRN (13:36)
[2019-11-05] MEDS ORDERED: TEMAZEPAM 15 MG CAPSULE PO PRN (13:36)
[2019-11-05] MEDS ORDERED: PROMETHAZINE 25 MG/ML VIAL IV PRN (13:36)
[2019-11-05] MEDS ORDERED: hydrALAZINE 20 MG/ML VIAL IV PRN (13:36)
[2019-11-05] MEDS: 0.9 % SODIUM CHLORIDE 250 ML IV SCH ×2 (17:00→20:04)
[2019-11-05] MEDS: QUEtiapine 25 MG TABLET PO SCH (20:03)
[2019-11-05] MEDS: amLODIPine 5 MG TABLET PO SCH (20:03)
[2019-11-05] MEDS: LORazepam 2 MG/ML VIAL IV PRN (21:32)
[2019-11-06] MEDS: HYDROmorphone 2 MG/ML VIAL IV PRN ×4 (00:03→08:34)
[2019-11-06] MEDS: METOCLOPRAMIDE 10 MG/2 ML VIAL IV SCH ×4 (05:44→23:32)
[2019-11-06] MEDS: 0.9 % SODIUM CHLORIDE 10 ML SYRINGE IV SCH ×3 (05:44→20:49)
[2019-11-06 06:25] LABS: Hematocrit 28.6 % (40.1-51.0); Hemoglobin 9.8 g/dL (13.7-17.5); Mean Cell Volume 88.3 fL (80.0-100.0); Mean Corpuscular HGB Conc 34.3 g/dL (31.0-36.0); Mean Platelet Volume 9.2 fL (7.4-10.4); Platelet Count 333 K/mcL (140-440); RBC 3.24 M/mcL (4.63-6.08); Red Cell Distribution Width 13.2 % (11.5-14.5); WBC 11.4 K/mcL (4.50-11.00)
[2019-11-06] MEDS: LURASIDONE HCL 80 MG PO SCH (08:33)
[2019-11-06] MEDS: LEVOFLOXACIN 500 MG/100 ML BAG IV SCH (08:33)
[2019-11-06] MEDS: lamoTRIgine 100 MG TABLET PO SCH (08:34)
[2019-11-06] MEDS: LURASIDONE HCL 20 MG PO SCH (08:35)
[2019-11-06 09:47] LABS: ALT/SGPT 19 U/l (0-40); AST/SGOT 18 U/l (0-37); Albumin/Globulin Ratio 1.3 (1.0-2.3); Alkaline Phosphatase 60 U/L (39-117); Bilirubin,Total 0.9 mg/dL (0.0-1.0); Calcium 9.1 mg/dl (8.6-10.4); Carbon Dioxide 24 mmol/L (22-30); Chloride 103 mmol/L (96-108); Glomerular Filtration Rate 110; Glucose 106 mg/dL (70-105); Lactate Dehydrogenase 317 U/L (94-250); Phosphorous 2.8 mg/dL (2.7-4.5); Triglycerides 225 mg/dl (<150)
--- NOTE | 2019-11-06 09:50 | Internal Med Progress Note ---
Medical - PN: Subj Patient information: Note initiated : 11/06/19 at 9:46 am Service Date, if different from initiated Date: [] Patient: Yevgeniy Fernandez a 49 y/o M admitted on 10/30/19 for Right Colectomy. Chief Complaint: [] Interval history: Mr. Fernandez is a 49 year old M with a history of factor X deficiency diagnosed [address] Kristyn reno oncology at [place] after patient experienced sustained bleeding following a tooth extraction. He has not had any major bleeding episodes except 20 years ago when he had cranial surgery following traumatic basilar skull fracture with CSF rhinorrhea and subsequent brain bleeding leading to partial lobectomy. He denies intermittent epistaxis or GI bleeds. He was admitted for cecal carcinoid and underwent operative intervention on 10/[address] Grissom. Postoperatively patient has been gradually bleeding at the anastomosis site with his hemoglobin trending down from peak of 13.9 to as low as 7.1 today. He continues to pass chunks of blood every few hours. He has been receiving intermittently FFP/blood transfusion was ordered today. He endorses to minimal /weakness but denies diaphoresis, chest pain, shortness of breath. Orthostatics was positive with heart rate increasing from 105-130s. Subsequently hospitalist service was consulted for evaluation of factor X deficiency/bleeding. At the time of my evaluation patient is alert and oriented. He is slightly anxious. He is accompanied with his [id number]. He denies abdominal discomfort. Postoperative dressing in place. He appears pale. Currently infusing FFP as per surgery orders followed by 2 units of PRBC. Patient was able to endorse history as above, denies diaphoresis, chest palpi tation or vision changes. He carries a history of substance abuse but last used cocaine 20 years ago and has not had hospitalization for CHF/cardiac arrhythmias. He is currently disabled following cranial surgery. Currently takes amlodipine for hypertension along with gabapentin and lamotrigine and quetiapine for PTSD. He denies hematuria/nausea vomiting, headache, photophobia or fever. 11/06-patient receiving 1200 cc FFP daily infusion based on body weight for factor X deficiency. No bleeding over the last 24 hours. Hemoglobin stabilized after units transfusion from 7.1->9. Continue 4 hourly hemoglobin checks. Additional 1200 cc FFP infusion today and can be discontinued if no further bleeding or drop in hematocrit in the next 24 hours. Patient alert oriented. No anxiety. Denies shortness of breath. No fever chills. No abdominal pain. Ongoing management per surgery. - Constitutional Vitals: Vital Signs Temp Pulse Resp BP Pulse Ox 98.6 F 96 H 20 133/87 99 11/06/19 08:00 11/06/19 04:00 11/06/19 08:00 11/06/19 08:00 11/06/19 08:00 Period Temp Pulse Resp BP Sys/Armendariz Pulse Ox Last 24 Hr 97.1 F-98.9 F 82-132 16-20 112-138/74-101 95-99 Intake and Output 11/05/19 11/06/19 11/06/19 21:59 05:59 13:59 Intake Total 1776 526 Output Total 1700 2000 500 Balance 76 -1474 -500 Weight 174 lb 4.8 oz Intake & Output: Intake & Output 11/05/19 11/06/19 11/06/19 21:59 05:59 13:59 Intake Total 1776 526 Output Total 1700 2000 500 Balance 76 -1474 -500 Weight 174 lb 4.8 oz Intake: IV 296 Sodium Chloride 0.9% 1,000 ml @ 71 50 mls/hr IV .Q20H GURPREET Rx#: [id number] Sodium Chloride 0.9% 250 ml @ 125 20 mls/hr IV .[id number] GURPREET Rx#: [id number] Oral 550 240 Blood Product 930 286 Output: Void Amount 1700 2000 500 Other: Urine Appearance Clear Clear Clear Urine Color Bright Yellow Bright Yellow Bright Yellow Urine Odor Normal Normal Normal General appearance: no acute distress Exam: Alert No anxiety Nonlabored breathing Nontender nondistended abdomen Medical - PN: Obj Da - Labs CBC & Chem 7: 11/06/19 08:21 11/03/19 06:21 Labs: Abnormal Lab Results 11/06/19 11/06/19 11/06/19 08:21 04:00 00:04 WBC 11.4 H RBC 3.24 L Hgb 10.6 L 9.8 L 8.7 L Hct 28.6 L PT INR Anion Gap BUN Total Bilirubin Direct Bilirubin Lactate Dehydrogenase Triglycerides 11/05/19 11/05/19 11/05/19 19:24 11:45 11:45 WBC RBC Hgb 9.9 L 8.0 L Hct PT 16.6 H INR 1.3 H Anion Gap BUN Total Bilirubin Direct Bilirubin Lactate Dehydrogenase Triglycerides 11/05/19 11/04/19 11/03/19 05:40 12:15 06:21 WBC 13.5 H 14.7 H RBC 2.28 L 3.11 L Hgb 7.1 L 9.8 L Hct 20.7 L* 27.7 L PT INR Anion Gap 19.0 H BUN 22 H Total Bilirubin 1.8 H Direct Bilirubin 0.4 H Lactate Dehydrogenase 298 H Triglycerides 182 H Meds: Medications Amlodipine Besylate (Norvasc) 5 mg PO HS [facility] Last Admin: 11/05/19 20:03 Dose: 5 mg Documented by: Hydralazine HCl (Apresoline) 10 mg IV Q4-6HP PRN PRN Reason: Hypertension Hydromorphone HCl (Dilaudid) 1 mg IV Q2HP PRN; Protocol PRN Reason: Per Pain Protocol Last Admin: 11/06/19 08:34 Dose: 1 mg Documented by: Levofloxacin (Levaquin) 500 mg in 100 mls @ 100 mls/hr IV Q24H [facility]; Protocol Last Admin: 11/06/19 08:33 Dose: 100 mls/hr Documented by: Sodium Chloride (Sodium Chloride 0.9%) 1,000 mls @ 50 mls/hr IV .Q20H [facility] Last Infusion: 11/05/19 19:54 Dose: 0 mls/hr Documented by: Acetaminophen (Ofirmev) 1,000 mg in 100 mls @ 200 mls/hr IV Q6HP PRN; Protocol PRN Reason: Per Pain Protocol/Fever > 101 Lamotrigine (Lamictal) 200 mg PO DAILY [facility] Last Admin: 11/06/19 08:34 Dose: 200 mg Documented by: Lorazepam (Ativan) 1 mg IV Q6HP PRN PRN Reason: ANXIETY/SEDATION Last Admin: 11/05/19 21:32 Dose: 1 mg Documented by: Metoclopramide HCl (Reglan) 10 mg IV Q6 [facility] Last Admin: 11/06/19 05:44 Dose: 10 mg Documented by: Metoprolol Tartrate (Lopressor) 5 mg IV Q4HP PRN PRN Reason: Tachyarrhythmias Ondansetron HCl (Zofran) 4 mg IV Q6HP PRN PRN Reason: Nausea And Vomiting Lurasidone Hcl [ (Latuda] 20 Mg Tab) 1 dose PO DAILY [facility] Last Admin: 11/06/19 08:35 Dose: 1 dose Documented by: Lurasidone Hcl [ (Latuda] 80 Mg Tab) 1 dose PO DAILY [facility] Last Admin: 11/06/19 08:33 Dose: 1 dose Documented by: Promethazine HCl (Phenergan) 12.5 mg IV Q6HP PRN PRN Reason: Nausea And Vomiting Quetiapine Fumarate (Seroquel) 25 mg PO HS [facility] Last Admin: 11/05/19 20:03 Dose: 25 mg Documented by: Sodium Chloride (Saline Flush) 10 ml IV Q8 [facility] Last Admin: 11/06/19 05:44 Dose: Not Given Documented by: Temazepam (Restoril) 30 mg PO HSP PRN PRN Reason: Insomnia Medical - PN: A/P - Time Spent With Patient Total time spent is greater than 50% in coordination of care (as documented) at patient's floor/unit and/or counseling patient: 25 - 35 minutes (1) Blood loss, postoperative Status: Acute Assessment and plan: * Cecal carcinoid status post colectomy/anastomotic site bleed managed per surgery * Postoperative pain management on opioids per surgery Hospitalist consult * Acute blood loss anemia-secondary to anastomosis site bleeding in the setting of factor X deficiency. Continue 1200 cc FFP/4 hourly hemoglobin checks. Discussed with blood bank factor X availability 4 to 10 days out and no availability of prothrombin complex concentrate. * Hemorrhagic shock with hypotension secondary to blood loss anemia-clinically improved with aggressive crystalloid/PRBC transfusion. Continue monitoring * History of neuropathy continue gabapentin * Essential hypertension continue amlodipine * History of traumatic brain injury with anxiety/PTSD continue lamotrigine/quetiapine * Full code * Prophylaxis SCD Plan * Continue 4 hourly hemoglobin check * daily infusion of FFP up to 1500 cc daily(given short half-life factor X 40-60 hours) * 2 units PRBC transfusion if hemoglobin less than 7 * Pre-existing medical condition management home meds * Postop care per orthopedics Current Visit: Yes Medical - PN: Qual - VTE Deep Vein Thrombosis/Pulmonary Embolism Present on Admission: No
[2019-11-06 09:52] LABS: Bilirubin,Direct < 0.2 mg/dL (0.0-0.3); Blood Urea Nitrogen 8 mg/dl (6-20)
--- NOTE | 2019-11-06 10:48 | General Surgery Progress Note ---
Subjective Patient reports: no new complaints, feels better, pain is less Narrative: Note initiated : 11/06/19 at 10:46 am Service Date, if different from initiated Date: [] Patient: Yevgeniy Fernandez 49 y/o M admitted on 10/30/19 for Right Colectomy. Chief Complaint: []post operative GI bleed, presumably from anastomosis No further GI bleeding but no BM in last 24 hours. HCT is stable Objective Temp Pulse Resp BP Pulse Ox 98.6 F 96 H 20 133/87 99 11/06/19 08:00 11/06/19 04:00 11/06/19 08:00 11/06/19 08:00 11/06/19 08:00 - Additional Data Intake & Output - Last 24 hours: Intake & Output 11/04/19 11/05/19 11/06/19 11/07/19 05:59 05:59 05:59 05:59 Intake Total 3401 5573 2615 Output Total 2450 2075 5350 500 Balance 951 3498 -2175 -500 Weight 175 lb 3.2 oz 176 lb 12.8 oz 174 lb 4.8 oz - General physical appearance well developed, well nourished, no distress - Cardiovascular Cardiovascular exam: Present: normal rate and rhythm - Abdomen soft, non tender, wound (incision clean dry dulce maria intact, no signs of infection) - Labs 11/06/19 08:21 11/06/19 08:21 Diabetes panel 11/06/19 Range/Units 08:21 Sodium 138 (133-145) mmol/L Potassium 3.3 (3.3-5.1) mmol/L Chloride 103 (96-108) mmol/L Carbon Dioxide 24 (22-30) mmol/L BUN 8 (6-20) mg/dl Creatinine 0.7 (0.7-1.2) mg/dl Glucose 106 H (70-105) mg/dL Calcium 9.1 (8.6-10.4) mg/dl AST 18 (0-37) U/l ALT 19 (0-40) U/l Alkaline Phosphatase 60 (39-117) U/L Total Protein 7.0 (5.9-8.4) gm/dL Albumin 4.0 (3.2-5.2) gm/dL Triglycerides 225 H (<150) mg/dl Calcium panel 11/06/19 Range/Units 08:21 Calcium 9.1 (8.6-10.4) mg/dl Phosphorus 2.8 (2.7-4.5) mg/dL Albumin 4.0 (3.2-5.2) gm/dL Pituitary panel 11/06/19 Range/Units 08:21 Sodium 138 (133-145) mmol/L Potassium 3.3 (3.3-5.1) mmol/L Chloride 103 (96-108) mmol/L Carbon Dioxide 24 (22-30) mmol/L BUN 8 (6-20) mg/dl Creatinine 0.7 (0.7-1.2) mg/dl Glucose 106 H (70-105) mg/dL Calcium 9.1 (8.6-10.4) mg/dl Adrenal panel 11/06/19 Range/Units 08:21 Sodium 138 (133-145) mmol/L Potassium 3.3 (3.3-5.1) mmol/L Chloride 103 (96-108) mmol/L Carbon Dioxide 24 (22-30) mmol/L BUN 8 (6-20) mg/dl Creatinine 0.7 (0.7-1.2) mg/dl Glucose 106 H (70-105) mg/dL Calcium 9.1 (8.6-10.4) mg/dl Total Bilirubin 0.9 (0.0-1.0) mg/dL AST 18 (0-37) U/l ALT 19 (0-40) U/l Alkaline Phosphatase 60 (39-117) U/L Total Protein 7.0 (5.9-8.4) gm/dL Albumin 4.0 (3.2-5.2) gm/dL Assessment and Plan (1) Carcinoid tumor of ileum Status: Resolved Current Visit: Yes (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 Current Visit: No (3) Tachycardia Status: Resolved Assessment and plan: Elevated HR probably on basis of low intravascular volume after GI bleed will Increase fluids IV and check CBC CXR OK Current Visit: Yes - Narrative A/P Narrative: Better today no evidence of GI bleed will adv diet to regular and follow - Time Spent With Patient Total time spent is greater than 50% in coordination of care (as documented) at patient's floor/unit and/or counseling patient: 15 - 24 minutes
[2019-11-06] MEDS: oxyCODONE/APAP 10/325MG TABLET PO PRN ×3 (11:46→23:32)
--- NOTE | 2019-11-06 13:01 | Internal Med Progress Note ---
Medical - PN: Subj Patient information: Note initiated : 11/06/19 at 12:57 pm Service Date, if different from initiated Date: [] Patient: Yevgeniy Fernandez a 49 y/o M admitted on 10/30/19 for Right Colectomy. Chief Complaint: [] Interval history: Mr. Fernandez is a 49 year old M with a history of factor X deficiency diagnosed [address] Kristyn reno oncology at [place] after patient experienced sustained bleeding following a tooth extraction. He has not had any major bleeding episodes except 20 years ago when he had cranial surgery following traumatic basilar skull fracture with CSF rhinorrhea and subsequent brain bleeding leading to partial lobectomy. He denies intermittent epistaxis or GI bleeds. He was admitted for cecal carcinoid and underwent operative intervention on 10/[address] Grissom. Postoperatively patient has been gradually bleeding at the anastomosis site with his hemoglobin trending down from peak of 13.9 to as low as 7.1 today. He continues to pass chunks of blood every few hours. He has been receiving intermittently FFP/blood transfusion was ordered today. He endorses to minimal /weakness but denies diaphoresis, chest pain, shortness of breath. Orthostatics was positive with heart rate increasing from 105-130s. Subsequently hospitalist service was consulted for evaluation of factor X deficiency/bleeding. At the time of my evaluation patient is alert and oriented. He is slightly anxious. He is accompanied with his [id number]. He denies abdominal discomfort. Postoperative dressing in place. He appears pale. Currently infusing FFP as per surgery orders followed by 2 units of PRBC. Patient was able to endorse history as above, denies diaphoresis, chest pal pitation or vision changes. He carries a history of substance abuse but last used cocaine 20 years ago and has not had hospitalization for CHF/cardiac arrhythmias. He is currently disabled following cranial surgery. Currently takes amlodipine for hypertension along with gabapentin and lamotrigine and quetiapine for PTSD. He denies hematuria/nausea vomiting, headache, photophobia or fever. 11/06-patient receiving 1200 cc FFP daily infusion based on body weight for factor X deficiency. No bleeding over the last 24 hours. Hemoglobin stabilized after units transfusion from 7.1->9. Continue 4 hourly hemoglobin checks. Additional 1200 cc FFP infusion today and can be discontinued if no further bleeding or drop in hematocrit in the next 24 hours. Patient alert oriented. No anxiety. Denies shortness of breath. No fever chills. No abdominal pain. Ongoing management per surgery. 11/07 - Constitutional Vitals: Vital Signs Temp Pulse Resp BP Pulse Ox 97.8 F 96 H 20 128/82 98 11/06/19 11:33 11/06/19 04:00 11/06/19 11:33 11/06/19 11:33 11/06/19 11:33 Period Temp Pulse Resp BP Sys/Armendariz Pulse Ox Last 24 Hr 97.1 F-98.9 F 82-96 18-20 112-133/74-101 95-99 Intake and Output 11/05/19 11/06/19 11/06/19 21:59 05:59 13:59 Intake Total 1776 526 100 Output Total 1700 2000 500 Balance 76 -1474 -400 Weight 79.061 kg Intake & Output: Intake & Output 11/05/19 11/06/19 11/06/19 21:59 05:59 13:59 Intake Total 1776 526 100 Output Total 1700 2000 500 Balance 76 -1474 -400 Weight 79.061 kg Intake: IV 296 100 Sodium Chloride 0.9% 1,000 ml @ 71 50 mls/hr IV .Q20H [facility] Rx#: [id number] Sodium Chloride 0.9% 250 ml @ 125 20 mls/hr IV .[id number] [facility] Rx#: [id number] Oral 550 240 Blood Product 930 286 Output: Void Amount 1700 2000 500 Other: Urine Appearance Clear Clear Clear Urine Color Bright Yellow Bright Yellow Bright Yellow Urine Odor Normal Normal Normal Exam: General: Alert, Awake, No acute Distress Eyes/N/T: EOMI, Head/Neck: neck supple, CV: RRR, No murmurs, Pulm: Clear b/l, no wheezing/rhonchi/rales Abd: soft, nontender, +BS x4 Ext: no clubbing/cyanosis/edema Neuro: Alert, no focal deficits, moves all extremities, Skin: warm/dry Medical - PN: Obj Da - Labs CBC & Chem 7: 11/06/19 08:21 11/06/19 08:21 Labs: Abnormal Lab Results 11/06/19 11/06/19 11/06/19 08:21 08:21 04:00 WBC 11.4 H RBC 3.24 L Hgb 10.6 L 9.8 L Hct 28.6 L PT INR Glucose 106 H Lactate Dehydrogenase 317 H Triglycerides 225 H 11/06/19 11/05/19 11/05/19 00:04 19:24 11:45 WBC RBC Hgb 8.7 L 9.9 L Hct PT 16.6 H INR 1.3 H Glucose Lactate Dehydrogenase Triglycerides 11/05/19 11/05/19 11/04/19 11:45 05:40 12:15 WBC 13.5 H 14.7 H RBC 2.28 L 3.11 L Hgb 8.0 L 7.1 L 9.8 L Hct 20.7 L* 27.7 L PT INR Glucose Lactate Dehydrogenase Triglycerides Meds: Medications Amlodipine Besylate (Norvasc) 5 mg PO HS [facility] Last Admin: 11/05/19 20:03 Dose: 5 mg Documented by: Hydralazine HCl (Apresoline) 10 mg IV Q4-6HP PRN PRN Reason: Hypertension Levofloxacin (Levaquin) 500 mg in 100 mls @ 100 mls/hr IV Q24H [facility]; Protocol Last Infusion: 11/06/19 10:00 Dose: Infused Documented by: Sodium Chloride (Sodium Chloride 0.9%) 1,000 mls @ 50 mls/hr IV .Q20H [facility] Last Infusion: 11/05/19 19:54 Dose: 0 mls/hr Documented by: Acetaminophen (Ofirmev) 1,000 mg in 100 mls @ 200 mls/hr IV Q6HP PRN; Protocol PRN Reason: Per Pain Protocol/Fever > 101 Lamotrigine (Lamictal) 200 mg PO DAILY [facility] Last Admin: 11/06/19 08:34 Dose: 200 mg Documented by: Lorazepam (Ativan) 1 mg IV Q6HP PRN PRN Reason: ANXIETY/SEDATION Last Admin: 11/05/19 21:32 Dose: 1 mg Documented by: Metoclopramide HCl (Reglan) 10 mg IV Q6 [facility] Last Admin: 11/06/19 11:47 Dose: 10 mg Documented by: Metoprolol Tartrate (Lopressor) 5 mg IV Q4HP PRN PRN Reason: Tachyarrhythmias Ondansetron HCl (Zofran) 4 mg IV Q6HP PRN PRN Reason: Nausea And Vomiting Oxycodone/Acetaminophen (Percocet 10-325mg) 1 tab PO Q6HP PRN; Protocol PRN Reason: Per Pain Protocol Last Admin: 11/06/19 11:46 Dose: 1 tab Documented by: Lurasidone Hcl [ (Latuda] 20 Mg Tab) 1 dose PO DAILY [facility] Last Admin: 11/06/19 08:35 Dose: 1 dose Documented by: Lurasidone Hcl [ (Latuda] 80 Mg Tab) 1 dose PO DAILY [facility] Last Admin: 11/06/19 08:33 Dose: 1 dose Documented by: Promethazine HCl (Phenergan) 12.5 mg IV Q6HP PRN PRN Reason: Nausea And Vomiting Quetiapine Fumarate (Seroquel) 25 mg PO HS [facility] Last Admin: 11/05/19 20:03 Dose: 25 mg Documented by: Sodium Chloride (Saline Flush) 10 ml IV Q8 [facility] Last Admin: 11/06/19 05:44 Dose: Not Given Documented by: Temazepam (Restoril) 30 mg PO HSP PRN PRN Reason: Insomnia Medical - PN: A/P - Time Spent With Patient Total time spent is greater than 50% in coordination of care (as documented) at patient's floor/unit and/or counseling patient: - Narrative A/P Narrative: A: *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 *Neuropathy: continue gabapentin *HTN: on amlodipine *h/o Traumatic brain injury with anxiety/PTSD:continue lamotrigine/quetiapine Plan: -daily infusion of FFP up to 1500 cc daily(given short half-life factor X 40-60 hours) -2 units PRBC transfusion if hemoglobin less than 7 - -Postop care per surgery -ppx: [facility] - PN: Qual - VTE Deep Vein Thrombosis/Pulmonary Embolism Present on Admission: No
[2019-11-06 17:54] LABS: Hemoglobin 9.5 g/dL (13.7-17.5)
[2019-11-06] MEDS: 0.9 % SODIUM CHLORIDE 1,000 ML IV SCH (18:06)
[2019-11-06] MEDS: QUEtiapine 25 MG TABLET PO SCH (20:49)
[2019-11-06] MEDS: amLODIPine 5 MG TABLET PO SCH (20:49)
[2019-11-07] MEDS: 0.9 % SODIUM CHLORIDE 10 ML SYRINGE IV SCH ×3 (05:53→20:47)
[2019-11-07] MEDS: METOCLOPRAMIDE 10 MG/2 ML VIAL IV SCH ×3 (05:53→18:14)
--- NOTE | 2019-11-07 07:48 | Internal Med Progress Note ---
Medical - PN: Subj Patient information: Note initiated : 11/07/19 at 7:46 am Service Date, if different from initiated Date: [] Patient: Yevgeniy Fernandez a 49 y/o M admitted on 10/30/19 for Right Colectomy. Chief Complaint: [] Interval history: Mr. Fernandez is a 49 year old M with a history of factor X deficiency diagnosed [address] Kristyn reno oncology at [place] after patient experienced sustained bleeding following a tooth extraction. He has not had any major bleeding episodes except 20 years ago when he had cranial surgery following traumatic basilar skull fracture with CSF rhinorrhea and subsequent brain bleeding leading to partial lobectomy. He denies intermittent epistaxis or GI bleeds. He was admitted for cecal carcinoid and underwent operative intervention on 10/[address] Grissom. Postoperatively patient has been gradually bleeding at the anastomosis site with his hemoglobin trending down from peak of 13.9 to as low as 7.1 today. He continues to pass chunks of blood every few hours. He has been receiving intermittently FFP/blood transfusion was ordered today. He endorses to minimal /weakness but denies diaphoresis, chest pain, shortness of breath. Orthostatics was positive with heart rate increasing from 105-130s. Subsequently hospitalist service was consulted for evaluation of factor X deficiency/bleeding. At the time of my evaluation patient is alert and oriented. He is slightly anxious. He is accompanied with his [id number]. He denies abdominal discomfort. Postoperative dressing in place. He appears pale. Currently infusing FFP as per surgery orders followed by 2 units of PRBC. Patient was able to endorse history as above, denies diaphoresis, chest palp itation or vision changes. He carries a history of substance abuse but last used cocaine 20 years ago and has not had hospitalization for CHF/cardiac arrhythmias. He is currently disabled following cranial surgery. Currently takes amlodipine for hypertension along with gabapentin and lamotrigine and quetiapine for PTSD. He denies hematuria/nausea vomiting, headache, photophobia or fever. 11/06-patient receiving 1200 cc FFP daily infusion based on body weight for factor X deficiency. No bleeding over the last 24 hours. Hemoglobin stabilized after units transfusion from 7.1->9. Continue 4 hourly hemoglobin checks. Additional 1200 cc FFP infusion today and can be discontinued if no further bleeding or drop in hematocrit in the next 24 hours. Patient alert oriented. No anxiety. Denies shortness of breath. No fever chills. No abdominal pain. Ongoing management per surgery. 11/07 No new complaints overnight events. Had some diarrhea last night none since. Review of Systems: denies headache/fever/chills/nausea/vomiting/chest or abdominal pain/cough/dyspnea. Otherwise see above. - Constitutional Vitals: Vital Signs Temp Pulse Resp BP Pulse Ox 98.9 F 82 16 132/87 98 11/07/19 07:09 11/07/19 07:09 11/07/19 07:09 11/07/19 07:09 11/07/19 07:09 Period Temp Pulse Resp BP Sys/Armendariz Pulse Ox Last 24 Hr 97.8 F-99.5 F 78-100 - 128-144/82-98 96-99 Intake and Output 11/06/19 11/07/19 11/07/19 21:59 05:59 13:59 Intake Total 955 800 Output Total 225 950 Balance 730 -150 Weight 79.968 kg Intake & Output: Intake & Output 11/06/19 11/07/19 11/07/19 21:59 05:59 13:59 Intake Total 955 800 Output Total 225 950 Balance 730 -150 Weight 79.968 kg Intake: IV 0 Sodium Chloride 0.9% 1,000 ml @ 0 50 mls/hr IV .Q20H [facility] Rx#: [id number] Oral 300 800 Blood Product 655 Output: Void Amount 225 950 Other: Urine Appearance Clear Clear Urine Color Bright Yellow Bright Yellow Urine Odor Normal Normal Stool Size Large Stool Color Brown Black Black Stool Consistency Liquid Watery # Voids 1 # Bowel Movements 1 # of times incontinent of 1 Bowels Exam: General: Alert, Awake, No acute Distress Eyes/N/T: EOMI, Head/Neck: neck supple, CV: RRR, No murmurs, Pulm: Clear b/l, no wheezing/rhonchi/rales Abd: soft, nontender, +BS x4 Ext: no clubbing/cyanosis/edema Neuro: Alert, no focal deficits, moves all extremities, Skin: warm/dry Medical - PN: Obj Da - Labs CBC & Chem 7: 11/06/19 17:24 11/06/19 08:21 Labs: Abnormal Lab Results 11/06/19 11/06/19 11/06/19 17:24 08:21 08:21 WBC RBC Hgb 9.5 L 10.6 L Hct 27.0 L PT INR Glucose 106 H Lactate Dehydrogenase 317 H Triglycerides 225 H 11/06/19 11/06/19 11/05/19 04:00 00:04 19:24 WBC 11.4 H RBC 3.24 L Hgb 9.8 L 8.7 L 9.9 L Hct 28.6 L PT INR Glucose Lactate Dehydrogenase Triglycerides 11/05/19 11/05/19 11/05/19 11:45 11:45 05:40 WBC 13.5 H RBC 2.28 L Hgb 8.0 L 7.1 L Hct 20.7 L* PT 16.6 H INR 1.3 H Glucose Lactate Dehydrogenase Triglycerides 11/04/19 12:15 WBC 14.7 H RBC 3.11 L Hgb 9.8 L Hct 27.7 L PT INR Glucose Lactate Dehydrogenase Triglycerides Meds: Medications Amlodipine Besylate (Norvasc) 5 mg PO HS [facility] Last Admin: 11/06/19 20:49 Dose: 5 mg Documented by: Hydralazine HCl (Apresoline) 10 mg IV Q4-6HP PRN PRN Reason: Hypertension Levofloxacin (Levaquin) 500 mg in 100 mls @ 100 mls/hr IV Q24H [facility]; Protocol Last Infusion: 11/06/19 10:00 Dose: Infused Documented by: Sodium Chloride (Sodium Chloride 0.9%) 1,000 mls @ 50 mls/hr IV .Q20H [facility] Last Admin: 11/06/19 18:06 Dose: 50 mls/hr Documented by: Acetaminophen (Ofirmev) 1,000 mg in 100 mls @ 200 mls/hr IV Q6HP PRN; Protocol PRN Reason: Per Pain Protocol/Fever > 101 Lamotrigine (Lamictal) 200 mg PO DAILY [facility] Last Admin: 11/06/19 08:34 Dose: 200 mg Documented by: Lorazepam (Ativan) 1 mg IV Q6HP PRN PRN Reason: ANXIETY/SEDATION Last Admin: 11/05/19 21:32 Dose: 1 mg Documented by: Metoclopramide HCl (Reglan) 10 mg IV Q6 [facility] Last Admin: 11/07/19 05:53 Dose: 10 mg Documented by: Metoprolol Tartrate (Lopressor) 5 mg IV Q4HP PRN PRN Reason: Tachyarrhythmias Ondansetron HCl (Zofran) 4 mg IV Q6HP PRN PRN Reason: Nausea And Vomiting Oxycodone/Acetaminophen (Percocet 10-325mg) 1 tab PO Q6HP PRN; Protocol PRN Reason: Per Pain Protocol Last Admin: 11/06/19 23:32 Dose: 1 tab Documented by: Lurasidone Hcl [ (Latuda] 20 Mg Tab) 1 dose PO DAILY [facility] Last Admin: 11/06/19 08:35 Dose: 1 dose Documented by: Lurasidone Hcl [ (Latuda] 80 Mg Tab) 1 dose PO DAILY [facility] Last Admin: 11/06/19 08:33 Dose: 1 dose Documented by: Promethazine HCl (Phenergan) 12.5 mg IV Q6HP PRN PRN Reason: Nausea And Vomiting Quetiapine Fumarate (Seroquel) 25 mg PO HS [facility] Last Admin: 11/06/19 20:49 Dose: 25 mg Documented by: Sodium Chloride (Saline Flush) 10 ml IV Q8 [facility] Last Admin: 11/07/19 05:53 Dose: Not Given Documented by: Temazepam (Restoril) 30 mg PO HSP PRN PRN Reason: Insomnia Medical - PN: A/P - Time Spent With Patient Total time spent is greater than 50% in coordination of care (as documented) at patient's floor/unit and/or counseling patient: - Narrative A/P Narrative: A: *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 *Neuropathy: continue gabapentin *HTN: *h/o Traumatic brain injury with anxiety/PTSD:continue lamotrigine/quetiapine *Depression/anxiety: Plan: -s/p daily infusion of FFP up to 1500 cc(given short half-life factor X 40-60 hours) -2 units PRBC transfusion if hemoglobin less than 7 -IVF d/c -Postop care per surgery -cont home amlodipine -ppx: [facility] - PN: Qual - VTE Deep Vein Thrombosis/Pulmonary Embolism Present on Admission: No
[2019-11-07] MEDS: LURASIDONE HCL 20 MG PO SCH (08:24)
[2019-11-07] MEDS: LURASIDONE HCL 80 MG PO SCH (08:24)
[2019-11-07] MEDS: lamoTRIgine 100 MG TABLET PO SCH (08:24)
[2019-11-07] MEDS: LEVOFLOXACIN 500 MG/100 ML BAG IV SCH (08:25)
[2019-11-07 09:29] LABS: Hematocrit 28.8 % (40.1-51.0); Mean Cell Volume 89.4 fL (80.0-100.0); Mean Corpuscular HGB Conc 34.7 g/dL (31.0-36.0); Mean Platelet Volume 9.2 fL (7.4-10.4); Platelet Count 359 K/mcL (140-440); RBC 3.22 M/mcL (4.63-6.08); Red Cell Distribution Width 13.1 % (11.5-14.5); WBC 10.1 K/mcL (4.50-11.00)
--- NOTE | 2019-11-07 10:12 | General Surgery Progress Note ---
Subjective Patient reports: no new complaints, feels better Narrative: Note initiated : 11/07/19 at 10:10 am Service Date, if different from initiated Date: [] Patient: Yevgeniy Fernandez 49 y/o M admitted on 10/30/19 for Right Colectomy. Chief Complaint: [] Pertinent ROS: no new problems today Objective Temp Pulse Resp BP Pulse Ox 98.9 F 82 16 132/87 98 11/07/19 07:09 11/07/19 07:09 11/07/19 07:09 11/07/19 07:09 11/07/19 07:09 - Additional Data Intake & Output - Last 24 hours: Intake & Output 11/05/19 11/06/19 11/07/19 11/08/19 05:59 05:59 05:59 05:59 Intake Total 5573 2615 3053 100 Output Total 2075 5350 2325 Balance 3498 -8275 728 100 Weight 176 lb 12.8 oz 174 lb 4.8 oz 176 lb 4.8 oz - General physical appearance well developed, well nourished, no distress, no pain - Respiratory normal expansion, clear to auscultation - Cardiovascular Cardiovascular exam: Present: normal rate and rhythm - Abdomen soft, non tender, wound (Incision clean dry) - Additional Exam Normal BM w/o obvious blood HCT stable today - Labs 11/07/19 05:08 11/06/19 08:21 Assessment and Plan (1) Carcinoid tumor of ileum Status: Resolved Current Visit: Yes (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 Current Visit: No (3) Tachycardia Status: Resolved Assessment and plan: Elevated HR probably on basis of low intravascular volume after GI bleed will Increase fluids IV and check CBC CXR OK Current Visit: Yes - Time Spent With Patient Total time spent is greater than 50% in coordination of care (as documented) at patient's floor/unit and/or counseling patient: less than 15 minutes
[2019-11-07] MEDS: oxyCODONE/APAP 10/325MG TABLET PO PRN ×2 (12:11→18:13)
[2019-11-07] MEDS: 0.9 % SODIUM CHLORIDE 1,000 ML IV SCH (12:55)
[2019-11-07] MEDS: amLODIPine 5 MG TABLET PO SCH (20:32)
[2019-11-07] MEDS: QUEtiapine 25 MG TABLET PO SCH (20:32)
[2019-11-07] MEDS: LORazepam 2 MG/ML VIAL IV PRN (20:47)
[2019-11-07] MEDS ORDERED: PROMETHAZINE 25 MG/ML VIAL IV PRN (22:07)
[2019-11-07] MEDS ORDERED: LORazepam 2 MG/ML VIAL IV PRN (22:07)
[2019-11-07] MEDS ORDERED: ONDANSETRON 4 MG/2 ML VIAL IV PRN (22:07)
[2019-11-07] MEDS ORDERED: TEMAZEPAM 15 MG CAPSULE PO PRN (22:07)
[2019-11-07] MEDS ORDERED: METOPROLOL TARTRATE 5 MG/5 ML VIAL IV PRN (22:07)
[2019-11-07] MEDS ORDERED: hydrALAZINE 20 MG/ML VIAL IV PRN (22:07)
[2019-11-07] MEDS ORDERED: ACETAMINOPHEN 1,000 MG/100 ML BOTTLE IV PRN (22:07)
[2019-11-08] MEDS: oxyCODONE/APAP 10/325MG TABLET PO PRN ×2 (00:11→05:58)
[2019-11-08] MEDS: METOCLOPRAMIDE 10 MG/2 ML VIAL IV SCH ×2 (00:11→05:54)
[2019-11-08] MEDS ORDERED: 0.9 % SODIUM CHLORIDE 10 ML SYRINGE IV SCH (06:00)
--- NOTE | 2019-11-08 08:08 | Internal Med Progress Note ---
Medical - PN: Subj Patient information: Note initiated : 11/08/19 at 8:05 am Service Date, if different from initiated Date: [] Patient: Yevgeniy Fernandez a 49 y/o M admitted on 10/30/19 for Right Colectomy. Chief Complaint: [] Interval history: Mr. Fernandez is a 49 year old M with a history of factor X deficiency diagnosed [address] Kristyn reno oncology at [place] after patient experienced sustained bleeding following a tooth extraction. He has not had any major bleeding episodes except 20 years ago when he had cranial surgery following traumatic basilar skull fracture with CSF rhinorrhea and subsequent brain bleeding leading to partial lobectomy. He denies intermittent epistaxis or GI bleeds. He was admitted for cecal carcinoid and underwent operative intervention on 10/[address] Grissom. Postoperatively patient has been gradually bleeding at the anastomosis site with his hemoglobin trending down from peak of 13.9 to as low as 7.1 today. He continues to pass chunks of blood every few hours. He has been receiving intermittently FFP/blood transfusion was ordered today. He endorses to minimal /weakness but denies diaphoresis, chest pain, shortness of breath. Orthostatics was positive with heart rate increasing from 105-130s. Subsequently hospitalist service was consulted for evaluation of factor X deficiency/bleeding. At the time of my evaluation patient is alert and oriented. He is slightly anxious. He is accompanied with his [id number]. He denies abdominal discomfort. Postoperative dressing in place. He appears pale. Currently infusing FFP as per surgery orders followed by 2 units of PRBC. Patient was able to endorse history as above, denies diaphoresis, chest palp itation or vision changes. He carries a history of substance abuse but last used cocaine 20 years ago and has not had hospitalization for CHF/cardiac arrhythmias. He is currently disabled following cranial surgery. Currently takes amlodipine for hypertension along with gabapentin and lamotrigine and quetiapine for PTSD. He denies hematuria/nausea vomiting, headache, photophobia or fever. 11/06-patient receiving 1200 cc FFP daily infusion based on body weight for factor X deficiency. No bleeding over the last 24 hours. Hemoglobin stabilized after units transfusion from 7.1->9. Continue 4 hourly hemoglobin checks. Additional 1200 cc FFP infusion today and can be discontinued if no further bleeding or drop in hematocrit in the next 24 hours. Patient alert oriented. No anxiety. Denies shortness of breath. No fever chills. No abdominal pain. Ongoing management per surgery. 11/07 No new complaints overnight events. Had some diarrhea last night none since. 11/08 Doing well. Stool is now brown instead of dark. He also feels like to have some substance to them. No overnight events. Review of Systems: denies headache/fever/chills/nausea/vomiting/chest or abdominal pain/cou gh/dyspnea. Otherwise see above. - Constitutional Vitals: Vital Signs Temp Pulse Resp BP Pulse Ox 98.2 F 82 16 132/91 98 11/08/19 07:27 11/08/19 07:27 11/08/19 07:27 11/08/19 07:27 11/08/19 07:27 Period Temp Pulse Resp BP Sys/Armendariz Pulse Ox Last 24 Hr 98 F-99.1 F 80-116 12-20 113-152/79-108 97-100 Intake and Output 11/07/19 11/08/19 11/08/19 21:59 05:59 13:59 Intake Total 900 360 Output Total 250 300 500 Balance 650 -300 -140 Weight 76.521 kg Intake & Output: Intake & Output 11/07/19 11/08/19 11/08/19 21:59 05:59 13:59 Intake Total 900 360 Output Total 250 300 500 Balance 650 -300 -140 Weight 76.521 kg Intake: Oral 900 360 Output: Void Amount 250 300 500 Other: Meal Dinner Percent of Meal Consumed 75% Feeding Ability Independent Urine Color Bright Yellow Dark Yellow Stool Color Brown # Voids 1 # Bowel Movements 1 Exam: General: Alert, Awake, No acute Distress Eyes/N/T: EOMI, Head/Neck: neck supple, CV: RRR, No murmurs, Pulm: Clear b/l, no wheezing/rhonchi/rales Abd: soft, nontender, +BS x4 Ext: no clubbing/cyanosis/edema Neuro: Alert, no focal deficits, moves all extremities, Skin: warm/dry Medical - PN: Obj Da - Labs CBC & Chem 7: 11/07/19 05:08 11/06/19 08:21 Labs: Abnormal Lab Results 11/07/19 11/06/19 11/06/19 05:08 17:24 08:21 WBC RBC 3.22 L Hgb 10.0 L 9.5 L Hct 28.8 L 27.0 L PT INR Glucose 106 H Lactate Dehydrogenase 317 H Triglycerides 225 H 11/06/19 11/06/19 11/06/19 08:21 04:00 00:04 WBC 11.4 H RBC 3.24 L Hgb 10.6 L 9.8 L 8.7 L Hct 28.6 L PT INR Glucose Lactate Dehydrogenase Triglycerides 11/05/19 11/05/19 11/05/19 19:24 11:45 11:45 WBC RBC Hgb 9.9 L 8.0 L Hct PT 16.6 H INR 1.3 H Glucose Lactate Dehydrogenase Triglycerides 11/05/19 05:40 WBC 13.5 H RBC 2.28 L Hgb 7.1 L Hct 20.7 L* PT INR Glucose Lactate Dehydrogenase Triglycerides Meds: Medications Amlodipine Besylate (Norvasc) 5 mg PO HS GURPREET Hydralazine HCl (Apresoline) 10 mg IV Q4-6HP PRN PRN Reason: Hypertension Acetaminophen (Ofirmev) 1,000 mg in 100 mls @ 200 mls/hr IV Q6HP PRN; Protocol PRN Reason: Per Pain Protocol/Fever > 101 Lamotrigine (Lamictal) 200 mg PO DAILY PENDING SALE TO [facility] Lorazepam (Ativan) 1 mg IV Q6HP PRN PRN Reason: ANXIETY/SEDATION Metoclopramide HCl (Reglan) 10 mg IV Q6 GURPREET Last Admin: 11/08/19 05:54 Dose: 10 mg Documented by: Metoprolol Tartrate (Lopressor) 5 mg IV Q4HP PRN PRN Reason: Tachyarrhythmias Ondansetron HCl (Zofran) 4 mg IV Q6HP PRN PRN Reason: Nausea And Vomiting Oxycodone/Acetaminophen (Percocet 10-325mg) 1 tab PO Q6HP PRN; Protocol PRN Reason: Per Pain Protocol Last Admin: 11/08/19 05:58 Dose: 1 tab Documented by: Lurasidone Hcl [ (Latuda] 20 Mg Tab) 1 dose PO DAILY PENDING SALE TO [facility] Lurasidone Hcl [ (Latuda] 80 Mg Tab) 1 dose PO DAILY PENDING SALE TO [facility] Promethazine HCl (Phenergan) 12.5 mg IV Q6HP PRN PRN Reason: Nausea And Vomiting Quetiapine Fumarate (Seroquel) 25 mg PO HS GURPREET Sodium Chloride (Saline Flush) 10 ml IV Q8 PENDING SALE TO [facility] Last Admin: 11/08/19 05:58 Dose: 10 ml Documented by: Temazepam (Restoril) 30 mg PO HSP PRN PRN Reason: Insomnia Medical - PN: A/P - Time Spent With Patient Total time spent is greater than 50% in coordination of care (as documented) at patient's floor/unit and/or counseling patient: - Narrative A/P Narrative: A: *Cecal carcinoid: s/p colectomy/anastomotic site bleed (10/30),managed per surgery *Postoperative pain management on opioids per surgery *Acute blood loss anemia: / anastomosis site bleeding in the setting of factor X deficiency -BM's brown per nursing -stable *Hemorrhagic shock: resolved aggressive crystalloid/PRBC transfusion. *Neuropathy: continue gabapentin *HTN: *h/o Traumatic brain injury with anxiety/PTSD:continue lamotrigine/quetiapine *Depression/anxiety: Plan: -s/p daily infusion's of FFP given short half-life factor X 40-60 hours -prn PRBC transfusions -Postop care per surgery -cont home amlodipine -ppx: [facility] Medical - PN: Qual - VTE Deep Vein Thrombosis/Pulmonary Embolism Present on Admission: No
[2019-11-08] MEDS ORDERED: LURASIDONE HCL 20 MG PO SCH (09:00)
[2019-11-08] MEDS ORDERED: lamoTRIgine 100 MG TABLET PO SCH (09:00)
[2019-11-08] MEDS ORDERED: LURASIDONE HCL 80 MG PO SCH (09:00)
--- NOTE | 2019-11-08 09:01 | Discharge Summary ---
Providers - Providers Patient information: Note initiated : 11/08/19 at 8:57 am Service Date, if different from initiated Date: [] Patient: Yevgeniy Fernandez 49 y/o M admitted on 10/30/19 for Right Colectomy. Chief Complaint: [] Date of admission: 10/30/19 Discharge date: 11/08/19 Attending physician: Winston Grissom Hospitalization Hospital Course: Surgery on Oct for terminal iliectomy and right colectomy with primary anastomosis. See op note for details. Relatively un-eventful post op course except for GI bleeding on post-op day 4. This was treated as a "medical bleed" and was presumably from the anastomosis. He stabelized with blood and FFP transfusions. Once it was sure that the GI bleed had stopped he was fed a regular diet and is now having regular non-bloody BM's without melena and his HGB/HCT is stable. 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 Reason for admission: Surgery Procedures: Right colectomy and primary anastomosis Pertinent studies/significant findings: see op note dated Oct, Exam Temp Pulse Resp BP Pulse Ox 98.2 F 82 16 132/91 98 11/08/19 07:27 11/08/19 07:27 11/08/19 07:27 11/08/19 07:27 11/08/19 07:27 - General physical appearance well developed, well nourished, no distress, no pain - Cardiovascular Cardiovascular exam IM: Present: normal rate and rhythm - Abdomen Abdomen: Present: soft, non tender, bowel sounds, wound (Wound clean dry with [place] intact) Discharge Plan - Patient/Caregiver Discharge Instructions Activity: increase activity as tolerated, return to work once cleared by your PCP/specialist, resume usual activities as tolerated Diet: Regular Diet Additional Instructions: Patient to call office to schedule appointment 2 weeks from day of surgery Call Saturday for an appointment this week with [facility] for Staple Removal Do not lift more then 10-15 lbs for the next month. Activity: increase activity as tolerated, return to work once cleared by your PCP/specialist, resume usual activities as tolerated Diet: Regular Diet Prescriptions: oxyCODONE/APAP [Percocet 10-325Mg] 1 - 2 tab PO Q6HP PRN 10 Days #20 tab PRN Reason: Per Pain Protocol Prescription Printed - Follow up Plan Follow up with: Winston Grissom MD [Physician] - (Please call saturday to schedule a 2 week follow up from surgical date. Please call saturday to schedule a Staple Removal appointment this week. ) Disposition: Home, Self-Care Care Plan Goals: This discharge packet is provided to you to help keep you informed about your care. We want to ensure you get everything you need when you go home. You will also be receiving a call from us in a few days to follow up with you and see how you are doing since your discharge. This gives us a chance to listen to any concerns you maybe experiencing since you were discharged or any additional needs you may have, as well as providing us feedback on your care experience. We strive to always provide excellent care and thank you for your feedback and for choosing [facility]. Plan of Treatment: resume activities Prognosis: Good Rehab Potential: Good Pending Studies Resuscitation Status Full Code Diet Regular Diet Start SatNov 06 1041 Metoclopramide HCl (Reglan) 10 mg IV Q6 GURPREET Last Admin: 11/08/19 05:54 Dose: 10 mg Documented by: Admin: 11/08/19 00:11 Dose: 10 mg Documented by: PINO Oxycodone/Acetaminophen (Percocet 10-325mg) 1 tab PO Q6HP PRN; Protocol PRN Reason: Per Pain Protocol Last Admin: 11/08/19 05:58 Dose: 1 tab Documented by: Admin: 11/08/19 00:11 Dose: 1 tab Documented by: PINO Sodium Chloride (Saline Flush) 10 ml IV Q8 GURPREET Last Admin: 11/08/19 05:58 Dose: 10 ml Documented by: PINO Shift Summary 11/08/19 04:42 Shift Summary by Shayy Jensen Pt. medical status tonight with cardiac monitoring. VSS on RA. Sinus rhythm. A&Ox4. Percocet 10-325 given PRN approx. Q6H for abdominal tenderness/pain around surgical site. Dressing in place per pt. request/gown rubbing against dulce maria irritating. Pt. had a soft brown bowel movement at HS. Using urinal at bedside. Walked up and down hallway with family member last evening without complaints of SOB/dizziness/weakness. IV to LFA is SL. Initialized on 11/08/19 04:42 - END OF NOTE
[2019-11-08] MEDS ORDERED: amLODIPine 5 MG TABLET PO SCH (21:00)
[2019-11-08] MEDS ORDERED: QUEtiapine 25 MG TABLET PO SCH (21:00)
== END 2019-11-08 11:03 | disposition home or self-care (01) | DRG 329 ==
LOC: MEDSUR 04:53 → ICU 11-05 13:05
PROVIDERS: ADMIT Family Medicine Adult Medicine; ATTEND Specialist